=== PATIENT | male | born 1985 | race Caucasian/White ===

== ENCOUNTER 2024-06-29 17:21 | Emergency (ER) | payer OTHER, SELFPAY ==
--- NOTE | ~2024-06-29 | XR_ITS ---
EXAMINATION: XR FOOT, LEFT CLINICAL INFORMATION: Laceration of the fourth and fifth, short of abdominal wound. COMPARISON: None available. TECHNIQUE: AP, lateral, and oblique views of the left foot. FINDINGS: There is fracture through the midshaft of fifth proximal phalanx on the left, without displacement. The rest of visualized branches are unremarkable. Metatarsal bones and tarsal bones are normal. XR/XR foot LT min 3V IMPRESSION: Fracture through the midshaft of the fifth proximal phalanx
--- NOTE | 2024-06-29 17:47 | ED_ITS ---
HPI - General Adult General Chief complaint: Wound/Laceration Stated complaint: L pinky toe lac, bleeding controlled, near syncope Time Seen by Provider: 06/29/24 19:50 History of Present Illness ED Provider: Johnathan WARD narrative: The patient is a 39-year-old male. He is generally healthy aside from a seizure disorder for which he is on medications. He was taking a shower today. Shower door fell off and struck him on the left foot over the small toe. He sustained a laceration and a lot of pain and came to the emergency room. No other injuries. Last tetanus was 1 year ago. Related Data Previous Rx's ?Medication ?Instructions ?Recorded cephalexin 500 mg capsule 500 mg PO QID 7 days #28 caps 06/29/24 Allergies Allergy/AdvReac Type Severity Reaction Status Date / Time Penicillins [PENICILLINS] Allergy Unknown UNKNOWN Verified 06/30/24 15:34 Sulfa (Sulfonamide Allergy Unknown UNKNOWN Verified 06/30/24 15:34 Antibiotics) [SULFA (SULFONAMIDE ANTIBIOTICS)] Review of Systems 2 Review of Systems: Yes all other systems are reviewed and are negative Physical Exam ED Vital Signs: Vital Signs - 24 hr 06/29/24 17:48 06/29/24 21:05 Temperature 98 F 99 F Pulse Rate 72 68 Respiratory Rate 18 16 Blood Pressure 136/88 144/84 H Pulse Oximetry 100 97 Oxygen Delivery Method Room Air Room Air BMI result Body Mass Index 33.9 Const Other: The patient is a large male, BMI 33, who was awake, alert, pleasant, cooperative. HENMT Other: The appearance of the face is unremarkable. Eyes Other: Pupils are round equal, conjunctivae clear Resp Effort & Inspection: normal respiratory effort Skin Other: There is a laceration at the base of the left 5th toe. The laceration is about 1.5 cm in length. Neuro Other: The patient is awake, alert, pleasant, cooperative. Mental status is normal. The foot is neurovascularly intact. Extrem Other: There is a laceration at the base of the left 5th toe. No gross deformity. Fifth toe is quite tender. Course Course Course Narrative: This is a rapid medical exam performed by Ventura Truong NP: Additional HPI, ROS, PE not included below will be deferred to primary provider. Patient is a 39-year-old female presenting to emergency department with complaint of laceration to left foot between 4th and 5th toes. Patient was getting out of the shower when the shower door fell onto his foot. He states that his 5th toe feels ?loose. ?. Patient noted to have laceration to dorsal aspect of foot extending between 4th and 5th toes. Sensation intact. Tdap up-to-date, received last year. Plan: xray, will need sutures Medications Administered Discontinued Medications Generic Name Dose Route Start Last Admin Trade Name Araceli PRN Reason Stop Dose Admin Bacitracin 1 appl 06/29/24 21:30 06/29/24 21:35 Bacitracin Oint 0.9 Gm Packet TOPICAL 06/29/24 21:31 1 appl ONCE ONE Administration Protocol Cefazolin Sodium 3 gm/ Sodium 100 mls @ 200 mls/hr 06/29/24 21:15 06/29/24 22:55 Chloride IV 06/29/24 21:44 Infused ONCE ONE Infusion Lidocaine HCl 10 ml 06/29/24 20:57 06/29/24 21:08 Lidocaine Hcl 1 % 10 Ml Vial INFILTRATI 06/29/24 20:58 10 ml ONCE ONE Administration Procedures Laceration Laceration 1: Site: lower extremity Side (If applicable): left Size (cm): 3 Description: linear Depth: simple, single layer Local Anesthetic: lidocaine 1% Amount of anesthesia used (mL): 5 Pre-repair: wound explored, irrigated extensively and deep structures intact Skin layer closed with: nylon Size (cm): 4-0 Number of sutures: 5 Medical Decision Making Medical Decision Making [facility] Narrative: The patient is a 39-year-old male who sustained an injury to his left small toe when the shower door of the shower fell on his foot. He has a fracture of the proximal phalanx of the left small toe. There is an overlying laceration which is likely associated with the fracture and therefore this seems to be an open fracture. The patient is up-to-date on tetanus. I discussed the case with orthopedics who recommended a good washout with wound closure and follow up and antibiotics. The patient was given 2 g of IV cefazolin. After anesthesia the wound was copiously irrigated with normal saline and then closed with 5 sutures. The patient was given a postop shoe and crutches. He will be discharged with a prescription for cephalexin to follow up with Orthopedics for further care. Discharge Plan Discharge Clinical Impression: Open fracture of fifth toe of left foot Patient Disposition: Home, Self-Care Instructions: Crutch Instructions (ED), Toe Fracture (ED), Post Surgical Shoe (ED) Additional Instructions: You have a fracture of your left 5th toe. There was a wound associated with this fracture which makes this a ?open fracture. Please take the antibiotic prescribed 4 times a day, approximately every 6 hours. Please pharmacy picking tech the antibiotic tonight and take a dose at around 4:00AM, after that you may take it 4 times a day approximately every 6 hours. The prescription was sent to the 24 hour [facility] pharmacy on [address] in [place]. Use the crutches and the open toed shoe provided. Stay off the foot as much as possible and keep the left leg elevated. Elevating the injury will reduce swelling and improve healing. Please contact the orthopedic office in the morning for further care. Explained that you have an open fracture of your toe and that you should be seen in the next few days. Return to the emergency room if significantly worse at any time. Prescriptions: New cephalexin 500 mg capsule 500 mg PO QID 7 Days Qty: 28 0RF Referrals: Robert Vazquez MD [Physician] - (open fracture of left fifth toe) Stand Alone Forms: Work/School Release Interventions: ED Discharge Assessment Last Done: 06/29/24 23:29 Discharge Date/Time: 06/29/24 23:29 Print Language: Luxembourger
[2024-06-29 17:48] VITALS: BP 136/88; BP 162/90; PULSE 72; PULSE 89; RESP 18; TEMP 36.6; O2SAT 100; O2SAT 97; BMI 33.9
--- NOTE | 2024-06-29 19:19 | PC.NURSE ---
pt from waiting room, assume car of pt at this time
--- NOTE | 2024-06-29 19:40 | PC.NURSE ---
pt requesting to take his nightly meds, that he brought with him, explained, he couldn't take his medicine, at this time, pt voiced understaning
[2024-06-29 21:05] VITALS: BP 144/84; PULSE 68; RESP 16; TEMP 37.2; O2SAT 97
[2024-06-29] MEDS: Lidocaine HCl 1 % 10 ML VIAL INFILTRATI (21:08)
[2024-06-29] MEDS: Bacitracin Oint 0.9 GM PACKET 1 APPL TOPICAL (21:35)
[2024-06-29] MEDS: ceFAZolin Sodium 3 GM in 0.9 % Sodium Chloride 100 ML IV (21:53)
[2024-06-29 23:29] VITALS: BP 150/97; PULSE 70; RESP 18; TEMP 37.1; O2SAT 97
== END 2024-06-29 23:29 | disposition home or self-care (01) ==
PROVIDERS: Emergency Provider Emergency Medicine; PCP Physician Assistant
DX: S91.115A Laceration without foreign body of left lesser toe(s) without damage to nail, initial encounter (principal); M79.672 Pain in left foot; W26.9XXA Contact with unspecified sharp object(s), initial encounter; Y93.E1 Activity, personal bathing and showering; Y92.091 Bathroom in other non-institutional residence as the place of occurrence of the external cause; Y99.8 Other external cause status
CPT/HCPCS: 12002; 73630; 96374; 96375; 99284; 99285; J0690

== ENCOUNTER 2024-06-30 14:55 | Emergency (ER) | payer OTHER, SELFPAY ==
--- NOTE | 2024-06-30 15:28 | ED.GENADULT ---
HPI - General Adult General Chief complaint: Extremity Injury, Lower Stated complaint: l foot infection Time Seen by Provider: 06/30/24 17:29 Source: patient Mode of arrival: ambulatory Limitations: no limitations History of Present Illness ED Provider: Maximilian Leung PA-C HPI narrative: 39-year-old male presents to the ER for re-evaluation of an open fracture to the left 5th toe. Patient was seen here yesterday after a shower door dropped on his foot, causing a fracture and laceration to his left 5th toe. Sutures were placed and he was placed on antibiotics. He saw his PCP today who was concerned for infection with swelling of his foot. Patient reported some ongoing bleeding at the wound site but no drainage of any pus. No redness of the foot. Has a walking boot and crutches but has been bearing weight on the foot with increased pain. He has been compliant with his prescribed Keflex. MD complaint: Left foot pain and swelling after injury yesterday Onset (ago): day(s) Location: left and lower extremity Radiation: proximal Severity: moderate Severity scale (1-10): 6 Quality: aching Pain Consistency: constant Relieving factors: immobilization and rest Exacerbating factors: movement Associated symptoms: other (Slight bleeding from the wound) Treatments prior to arrival: none Related Data Previous Rx's ?Medication ?Instructions ?Recorded cephalexin 500 mg capsule 500 mg PO QID 7 days #28 caps 06/29/24 Allergies Allergy/AdvReac Type Severity Reaction Status Date / Time Penicillins [PENICILLINS] Allergy Unknown UNKNOWN Verified 06/30/24 15:34 Sulfa (Sulfonamide Allergy Unknown UNKNOWN Verified 06/30/24 15:34 Antibiotics) [SULFA (SULFONAMIDE ANTIBIOTICS)] Review of Systems Review of Systems: Yes all other systems are reviewed and are negative [facility] Social History Social History (System 12/12/23 @ 13:28 by Cass Choe) Advance Directives: No Advance Directives Information Provided: No Do you have a plan to hurt others: No Plan Physical Exam ED Vital Signs: Vital Signs - 24 hr 06/30/24 15:29 06/30/24 18:05 06/30/24 18:18 Temperature 98.3 F 98.3 F 98.3 F Pulse Rate 92 84 84 Respiratory Rate 18 16 16 Blood Pressure 149/92 H 150/92 H 150/92 H Pulse Oximetry 96 95 95 Oxygen Delivery Method Room Air Room Air Room Air BMI result Body Mass Index 41.1 Appearance: Alert. Oriented X3. No acute distress. HEENT: normal inspection CVS: Normal heart rate and rhythm. Pulses normal. Respiratory: No respiratory distress. Skin: Skin warm and dry. Normal skin color. Normal skin turgor. No rashes. Extremities: Left foot with moderate generalized swelling of the top of the foot, mild tenderness of the metatarsals. There is a linear laceration between the 4th and 5th digits with sutures in place, mild oozing distally without any wound dehiscence. The wound margins have white, wet, macerated skin. There is no erythema or warmth of the area. Neuro: Oriented X 3. No motor deficit. No sensory deficit. Course Course Course Narrative: RME performed by Hmoa Grya PA-C. Patient is a 39 year old assigned male at presenting to the emergency department with a left 5th toe laceration and fracture. Patient states that he was seen here yesterday for a left 5th toe fracture and laceration that was repaired. Patient states that he saw his PCP this morning who told him his toe looked infected and needed to be seen here in the ER where he was originally seen. Patient states he has been taking his medication as prescribed. Detailed physical exam and review of systems are deferred to the industry consultant. Patient placed back in the waiting room pending room availability. Medical Decision Making Medical Decision Making MDM Narrative: 39-year-old morbidly obese male with a recent left open toe fracture that occurred yesterday here from the PCP office for evaluation of possible infection of the area. Patient was placed on prophylactic Keflex. On examination there does not appear to be any infection, there is localized swelling of the foot and toe with some macerated skin at the wound edges. Patient was counseled on appropriate wound care and need to dry out the wound. The wound edges are well approximated. He continues to try to bear weight on the foot which is not allowing the wound epithelialized and properly heal. We discussed proper use of crutches and limiting weight-bearing while the wound and fracture are healing. Wound was redressed and patient was sent home with wound care supplies. We discussed signs and symptoms of infection that would prompt re-evaluation. Patient expressed understanding and is stable for discharge home. Differential Diagnosis Differential Diagnoses: The differential diagnosis associated with the presentation includes Open toe fracture, cellulitis, localized inflammatory response due to trauma, wound dehiscence External Record Review External record reviewed: Prior outpatient radiology Tests considered The following testing was considered but not selected: Considered repeat x-ray of the foot however management would not change, there does not appear to be gross deformity or displacement of the toe Prescription Management I considered prescription management with: Pain Medication and Antibiotic Chronic Conditions Patient?s care impacted by: Other (Morbid obesity) Critical Care Time Critical Care Time Critical Care Time: No Discharge Plan Discharge Clinical Impression: Open fracture of toe Patient Disposition: Home, Self-Care Instructions: Toe Fracture (ED) Additional Instructions: Continue your previously prescribed antibiotics. Complete the entire course and do not miss any doses. Keep the wound dry and clean. Change the dressing at least once per day. Do your best to not put any weight on this foot to allow the wound to heal appropriately. Elevate your foot whenever possible, apply ice to help with the pain and swelling. If you develop worsening swelling, redness to the foot or wound, drainage of pus or any other signs or symptoms of infection call your doctor come back to the ER for further evaluation and treatment. Prescriptions: No Action cephalexin 500 mg capsule 500 mg PO QID 7 Days Qty: 28 0RF Referrals: Naseem Bashir PA [Primary Care Provider] - Interventions: ED Discharge Assessment Last Done: 06/30/24 18:18 Discharge Date/Time: 06/30/24 18:18 Print Language: Danish
[2024-06-30 15:29] VITALS: BP 149/92; PULSE 92; RESP 18; TEMP 36.8; O2SAT 96; BMI 41.1
--- OUTSIDE RECORDS SUMMARY | 2024-06-30 17:37 | XMS_ITS | Continuity of Care Document ---
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) - 01/01/23 Severe obesity (BMI 35.0-39.9) with comorbidity(Discharge Diagnosis) - 01/01/23 ESSIE (obstructive sleep apnea)(Discharge Diagnosis) - 01/01/23 Attending Physician: Naseem Page Allergies, Adverse Reactions, Alerts Substance Reaction Severity Status penicillin face turns green Active sulfa drugs unknown Active Immunizations Given and Recorded Vaccine Date Status Refusal Reason influenza virus vaccine, inactivated 09/19/22 Remberto rded influenza virus vaccine, inactivated 08/17/21 Remberto rded influenza virus vaccine, inactivated 08/21/20 Remberto rded influenza virus vaccine, inactivated 08/23/19 Remberto rded influenza virus vaccine, inactivated 09/02/18 Remberto rded influenza virus vaccine, inactivated 09/15/17 Remberto rded influenza virus vaccine, inactivated 09/16/15 Give n influenza virus vaccine, inactivated 08/09/09 Remberto rded SARS-CoV-2 (COVID-19) mRNA-1273 vaccine 10/18/21 R ecorded SARS-CoV-2 (COVID-19) mRNA-1273 vaccine 04/08/21 R ecorded SARS-CoV-2 (COVID-19) mRNA-1273 vaccine 03/11/21 R ecorded tetanus/diphtheria/pertussis, acel(Tdap) 05/29/17 Given tetanus-diphtheria toxoids (Td) 05/12/08 Recorded tetanus-diphtheria toxoids (Td) 05/13/07 Given Medications Carpal tunnel splint right Carpal tunnel splint right, See Instructions, # 1 Unknown, Refills 0, Tot. Refills 0, Maintenance, Wear splint every night x 3 months. Dx CTS, 02/17/22 15:50:00 EDT, Supply Start Date: 02/17/22 Status: Ordered escitalopram 10 mg oral tablet 1 tablet, By Mouth, Daily, # 90 tablet, 1 Refills, Maintenance, 12/21/22 14:57:00 EST, [id number], 177.6, cm, 10/27/22 16:09:00 EST, Height Start Date: 12/21/22 Status: Ordered fluticasone 50 mcg/inh nasal spray See Instructions, USE 1 SPRAY BOTH NOSTRILS 2 TIMES A DAY,X90 DAYS, # 48 mL, 1 Refills, Maintenance, 07/19/22 12:07:00 EDT, [id number], 90, USE 1 SPRAY BOTH NOSTRILS 2 TIMES A DAY,X90 DAYS, 177.6, cm, 02/17/22 15:34:00 EDT, Height Start Date: 07/19/22 Status: Ordered Keppra XR 500 mg oral tablet, extended release 3 tablet, By Mouth, Daily in PM, DIRECTED., # 270 tablet, 3 Refills, Maintenance, 01/04/22 15:34:00 EST, [facility]/pharmacy #[id number], 177.6, cm, 12/22/21 16:30:00 EST, Height Start Date: 01/04/22 Stop Date: 12/30/22 Status: Ordered lisinopril 5 mg oral tablet 1, tablet, By Mouth, Daily, # 90 tablet, Refills 4, Route to Pharmacy Electronically, [id number], 177.6, cm, 02/17/22 15:34:00 EDT, Height Start Date: 03/22/22 Status: Ordered Proctozone HC 2.5% topical cream 1 applicator, Topically, 3 times a day, apply in a thin film to the affected skin and rub in gentlyand completely, # 30 Gm, 0 Refills, Maintenance, 09/01/20 11:10:00 EDT, [id number], 1 applicator Topically 3 times a day,x14 days,Instr:apply i... Start Date: 09/01/20 Stop Date: 09/15/20 Status: Ordered Readi-Cat 2 oral suspension See Instructions, 2 bottles as per radiology 1 the evening before CAT scan with the morning of CAT scan, # 2 pack/packet, 0 Refills, Maintenance, 11/30/20 14:17:00 EST, [id number], Partial fill upon patient request if the prescription is for a... Start Date: 11/30/20 Status: Ordered Problem List Condition Confirmation Course Effective Dates Status Health St atus Informant Adjustment Disorder with Mixed Anxiety and Depressed Mood Confirmed Active Autism spectrum disorder Confirmed Active Gynecomastia, male Confirmed Active Hypertension Confirmed Active Intractable localization-relate d epilepsy Confirmed Active Obesity Confirmed Active Class 2 obesity with body mass index (BMI) of 38.0 to 38.9 in adult Confirmed Active ESSIE (obstructive sleep apnea) Confirmed Active *[facility] [phone] PIECE DYER JAMARI BOWER Confirmed Active Severe obesity (BMI 35.0-39.9) with comorbidity Confirmed Active Right shoulder pain Confirmed Active Diagnosis Diagnosis Type Effective Dates Health Status Clinical Service Informant Physical exam Discharge Diagnosis 01/01/23 Hypertension Discharge Diagnosis 01/01/23 Intractable localization-relate d epilepsy Discharge Diagnosis 01/01/23 Severe obesity (BMI 35.0-39.9) with comorbidity Discharge Diagnosis 01/01/23 ESSIE (obstructive sleep apnea) Discharge Diagnosis 01/01/23 Vital Signs Most recent to oldest [Reference Range]: 1 2 Height 177.6 cm (01/01/23 9:26 AM) 177.6 cm (01/01/23 9:05 AM) Weight 122.8 kg (01/01/23 9:05 AM) Oxygen Saturation [94-100 %] 95 % (01/01/23 9:05 AM) Pulse Rate [55-90 bpm] 74 bpm (01/01/23 9:05 AM) Body Mass Index [18.5-24.99 kg/m2] 38.93 kg/m2 *>HHI* (01/01/23 9:05 AM) Blood Pressure [90-138/55-84 mm Hg] 124/ 83mm Hg (01/01/23 9:26 AM) 140/86mm Hg *H* (01/01/23 9:05 AM) Mode of Delivery (Oxygen) Room air (01/01/23 9:05 AM) Blood pressure sites Arm, left (01/01/23 9:05 AM) Social History Social History Type Response Smoking Status Never smoker entered on: 03/10/14 Sex Note * Char Valenzuela MA: PERFORM, SIGN, VERIFY Event Display: Patient Education/Instruction Authored Date: [id number] [facility] *MEERA Aleman Clinical Summary Name CARSON LANDRY Age 37 Years 1985 PCP Mckay JENSEN, Naseem Lr PCP Visit Date 01/01/2023 08:58:00 Additional Instructions: Scheduled Appointments?? Future Appointments ?No Future Appointments Scheduled Follow-Up Instructions ?? Diagnosis Essential (primary) hypertension; Localization-related (focal) (partial) symptomatic epilepsy and epileptic syndromes with simple partial seizures, intractable, without status epilepticus; Obstructive sleep apnea (adult) (pediatric); Morbid (severe) obesity due to excess calories; Encounter for gene ral adult medical examination without abnormal findings Medications: Please continue your medications until treatment is completed or stopped by your provider. Discuss any questions related to medications with your provider. Medications to Continue with No Changes These medications were not printed or sent to your pharmacy Barium Sulfate (Readi-Cat 2 oral suspension) 2 bottles as per radiology 1 the evening before CAT scan with the morning of CAT scan. Refills: 0. Next Dose: Durable Medical Equipment (Carpal tunnel splint right) Wear splint every night x 3 months. Dx CTS. Refills: 0. Next Dose: Escitalopram (escitalopram 10 mg oral tablet) 1 tab(s) Oral Daily. Refills: 1. Next Dose: Fluticasone Nasal (fluticasone 50 mcg/inh nasal spray) USE 1 SPRAY BOTH NOSTRILS 2 TIMES A DAY,X90 DAYS. Refills: 1. Next Dose: Hydrocortisone Topical (Proctozone HC 2.5% topical cream) 1 applicator Topically 3 times a day for 14 Days. apply in a thin film to the affected skin and rub in gently and completely. Refills: 0. Next Dose: levETIRAcetam (Keppra XR 500 mg oral tablet, extended release) 3 tab(s) Oral Daily in PM for 90 Days. DIRECTED.. Refills: 3. Next Dose: Lisinopril (lisinopril 5 mg oral tablet) 1 tab(s) Oral Daily. Refills: 4. Next Dose: Allergy Info:?? sulfa drugs; penicillin Medications Given This Visit Future Orders ?Comprehensive Metabolic Panel? Order Date:01/01/23?- Complete on or after?01/01/23 ?Hemoglobin A1C (Monitoring)? Order Date:01/01/23?- Complete on or after?01/01/23 Vital Signs Height 177.6 cm Weight 122.8 kg BMI 38.93 kg/m2 Blood Pressure 124 mm Hg/83 mm Hg Temperature Pulse Rate 74 bpm Respiratory Rate 02 Sat Mode of Delivery 95 %/Room air You can now view a summary of your hospital visit from the comfort of your home through a free online portal called [employer]. [employer] is a website that allows you to securely view your medical information including discharge summary, medications and follow-up visits. ??You can alsosend a secure electronic message to your doctor???s office to request appointments, renew medications or just ask a question. You can enroll at [email or web address] or register during your next office visit. Disclaimer:?? The information provided is of a general nature and is intended to be used in conjunction with the recommendations and advice of your health care practitioner. ??Every effort has been made to ensure that the information provided is accurate and complete at the time it is provided to you however, as your needs change, or, as new ??information becomes available, different or additional instructions may be required. If you have questions, please consult with your primary care provider or pharmacist, as appropriate. ??This information is not intended to serve as substitution for assessment and evaluation by a qualified health care provider. If you do not have a primary care provider, you may find a [facility] provider by calling [facility] [employer] [facility] at [phone]. For information about the plan of care including goals and instructions for your diagnosis, please see the patient education orders section of this document. Patient Education Materials?? The content of this educational material or handout may have been modified, supplemented, or adapted from its original content and format to support your individualized medical care. Patient Care team information Care Team Personnel Name: Naseem Page [facility] Associate Professional Member Role: PCP Address: Address: [address] [place] [address]- Care Team Related Persons Name: YOU BRITTON Address: [address] [place] [id number] Name: MORTEZA LANDRY Address: home [address] [place] [address]
--- OUTSIDE RECORDS SUMMARY | 2024-06-30 17:37 | XMS_ITS | Continuity of Care Document ---
Author Organization [facility] Address [address] [facility], 3r d Floor, [address] [place] [id number]- Care Team Providers Care Chief Of Field Operations Name Role Phone Josue JAMESON, Elyse Daniel Primary Care Physician Encounter [facility] [place] Date(s): 01/14/20 - 05/13/20 [facility] [address], 3[address] Floor, [address] [place] [address]- [facility] Attending Physician: Geovanny Randhawa Admitting Physician: Geovanny Randhawa Allergies, Adverse Reactions, Alerts Substance Reaction Severity Status penicillin face turns green Active sulfa drugs unknown Active Immunizations Given and Recorded Vaccine Date Status Refusal Reason tetanus/diphtheria/pertussis, acel(Tdap) 05/29/17 Given influenza virus vaccine, inactivated 09/16/15 Give n tetanus-diphtheria toxoids (Td) 05/13/07 Given Medications Claritin 10 mg oral tablet 10 mg, 1, tablet, By Mouth, Daily, # 30 tablet, Refills 0, Maintenance, 05/29/17 10:53:48 Start Date: 05/29/17 Status: Ordered Keppra XR 500 mg oral tablet, extended release See Instructions, 3 tablet By Mouth in the AM, OR as directed. No Substitution. Brand Name Medically Necessary., # 270 tablet, 1 Refills, Maintenance, 04/13/20 11:37:00 EDT, ER Tablet, 3 month supply, Dry Weight Start Date: 04/13/20 Status: Ordered oxybutynin 10 mg/24 hr oral tablet, extended release = 10 mg, By Mouth, Daily, 0 Refills, Maintenance, 09/05/19 9:47:21 EDT, ER Tablet Start Date: 09/05/19 Status: Ordered Problem List Condition Effective Dates Status Health Status Inform ant Adjustment Disorder with Mix ed Anxiety and Depressed Mood(Confirmed) Active Autism spectrum disorder(Confirmed) Active Gynecomastia, male(Confirmed) Active Hypertension(Confirmed) Active Intractable localization-rel ated epilepsy(Confirmed) Active Obesity(Confirmed) Active ESSIE (obstructive sleep apnea)(Confirmed) Active *[facility] [phone] CARE MANAG ER JAMARI BOWER(Confirmed) Active Right shoulder pain(Confirmed) Active Social History Social History Type Response Smoking Status Never smoker entered on: 03/10/14 Sex
--- OUTSIDE RECORDS SUMMARY | 2024-06-30 17:37 | XMS_ITS | Continuity of Care Document ---
Author Organization [facility] Address [address] [place] [address]- Care Team Providers Care Popcorn Vendor Name Role Phone Naseem Page Primary Care Physician Encounter 04/28/24 - 05/05/24 [facility] [address], [address] [place] [address]- Attending Physician: Cynthia Jules Admitting Physician: Cynthia Jules Referring Physician: Cynthia Jules Allergies, Adverse Reactions, Alerts Substance Reaction Severity Status penicillin face turns green Active sulfa drugs unknown Active Immunizations Given and Recorded Vaccine Date Status Refusal Reason influenza virus vaccine, inactivated 08/31/23 Remberto rded influenza virus vaccine, inactivated 09/19/22 Remberto rded [...] Daily, # 90 tablet, 1 Refills, Maintenance, 01/30/24 7:03:00 EDT, [id number], 177.6, cm, 01/07/24 15:36:00 EST, Height Start Date: 01/30/24 Status: Ordered fluticasone 50 mcg/inh nasal spray See Instructions, USE 1 SPRAY BOTH NOSTRILS 2 TIMES A DAY,X90 DAYS, # 48 mL, 1 Refills, Maintenance, 01/17/23 19:21:00 EST, [id number], 90, USE 1 SPRAY BOTH NOSTRILS 2 TIMES A DAY,X90 DAYS, 177.6, cm, 01/01/23 9:26:00 EST, Height Start Date: 01/17/23 Status: Ordered Keppra 750 mg oral tablet 1 tablet = 750 mg, By Mouth, 2 times a day, Brand name medically necessary, # 180 tablet, 2 Refills, Maintenance, 04/16/24 11:16:00 EDT, Tablet, [id number], Partial fill upon patient request if the prescription is for a schedule II opioid ector... Start Date: 04/16/24 Stop Date: 01/11/25 Status: Ordered Problem List Condition Confirmation Course Effective Dates Status [facility] atus Informant Adjustment Disorder with Mixed Anxiety and Depressed Mood Confirmed Active Autism spectrum disorder Confirmed Active Gynecomastia, male Confirmed Active Hypertension Confirmed Active Intractable localization-relate d epilepsy Confirmed Active Obesity Confirmed Active Class 2 obesity with body mass index (BMI) of 38.0 to 38.9 in adult Confirmed Active ESSIE (obstructive sleep apnea) Confirmed Active *[facility] [phone] 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 Reason: Calculus of kidney. COMPARISON: Multiple prior renal ultrasounds, most recently dated 10/30/2023; CT Abdomen and Pelvis12/28/2020. FINDINGS: Right kidney: 12.1 cm in length. No hydronephrosis. Normal parenchymal thickness and echotexture. No stones. No suspicious mass. Left kidney: 11.7 cm in length. No hydronephrosis. Normal parenchymal thickness and echotexture. Echogenic focus in the lower pole measuring up to 0.4 cm is again demonstrated. No suspicious mass. Urinary bladder: Incompletely distended, but no evidence of stone, mass or debris. Prevoid volume of approximately 89 cc. Bilateral ureteral jets are identified on color Doppler imaging suggesting ureterovesicular junction patency. Prostate: 2.9 x 3.3 x 5.3 cm, volume 26.7 cc. IMPRESSION: Unchanged echogenic focus in the lower pole of left kidney may represent a nonobstructing calculus. No sonographically apparent right renal calculi. No hydronephrosis. WSN: [id number] Ordering Physician: Cynthia Carnes Dictated By: Phu Bocanegra MD Dictated Date/Time: 04/29/24 12:48 p Reviewed By: Phu Bocanegra MD Signed By: Phu Bocanegra MD Signed Date/Time: 04/29/24 12:48 pm Transcribed By: COLTON Transcribed Date/Time: 04/29/24 12:04 pm Social History Social History Type Response Smoking Status Never smoker entered on: 03/10/14 Sex Patient Care team information Care Team Personnel Name: Naseem Page Position: S PCO Associate Professional Member Role: PCP Address: Address: [address] [place] [address]- Care Team Related Persons Name: BRITTON ORTA Address: home [address] [address] Name: KOMAL LANDRY Name: MORTEZA LANDRY Address: home [address] [place] [address]
--- OUTSIDE RECORDS SUMMARY | 2024-06-30 17:37 | XMS_ITS | Continuity of Care Document ---
Author Organization [facility] Address [address] [id number]- Care Team Providers Care Rn Rehabilitation Name Role Phone Elyse Salas NP Primary Care Physician Encounter [facility] Date(s): 12/25/19 - 01/04/20 [facility] Care [address] [address]- [facility] Attending Physician: Jose Kirk Admitting Physician: Jose Kirk Referring Physician: AdmtrJose Allergies, Adverse Reactions, Alerts Substance Reaction Severity [...] mg oral tablet, extended release See Instructions, 4 tablet By Mouth in the AM, OR as directed. No Substitution. Brand Name Medically Necessary., # 360 tablet, 1 Refills, Maintenance, 10/24/19 14:33:14 EST, ER Tablet, 3 month supply, Dry Weight Start Date: 10/24/19 Status: Ordered oxybutynin 10 mg/24 hr oral [...] Obesity(Confirmed) Active ESSIE (obstructive sleep apnea)(Confirmed) Active *[facility] [phone] CARE MANAG ER JAMARI BOWER(Confirmed) Active Right shoulder pain(Confirmed) Active Social History Social History Type Response Smoking Status Never smoker entered on: 03/10/14 Sex
--- OUTSIDE RECORDS SUMMARY | 2024-06-30 17:37 | XMS_ITS | Continuity of Care Document ---
Author Organization [facility] Address Unknown Care Team Providers Care Deli Worker Name Role Phone Naseem Page Primary Care Physician Encounter [facility] [place] Date(s): 01/04/22 - 02/03/22 [facility] Attending Physician: trJose Allergies, Adverse Reactions, Alerts Substance Reaction Severity Status penicillin face turns green Active sulfa drugs unknown Active Immunizations Given and Recorded Vaccine Date Status Refusal Reason SARS-CoV-2 (COVID-19) mRNA-1273 vaccine 10/18/21 R ecorded SARS-CoV-2 (COVID-19) mRNA-1273 vaccine 04/08/21 R ecorded SARS-CoV-2 (COVID-19) mRNA-1273 vaccine 03/11/21 R ecorded influenza virus vaccine, inactivated 08/17/21 Remberto rded influenza virus vaccine, inactivated 08/21/20 Remberto rded influenza virus vaccine, inactivated 08/23/19 Remebrto rded influenza virus vaccine, inactivated 09/02/18 Remberto rded influenza virus vaccine, inactivated 09/15/17 Remberto rded influenza virus vaccine, inactivated 09/16/15 Give n influenza virus vaccine, inactivated 08/09/09 Remberto rded tetanus/diphtheria/pertussis, acel(Tdap) 05/29/17 Given tetanus-diphtheria toxoids (Td) 05/12/08 Recorded tetanus-diphtheria toxoids (Td) 05/13/07 Given Medications fluticasone 50 mcg/inh nasal spray See Instructions, USE 1 SPRAY BOTH NOSTRILS 2 TIMES A DAY,X90 DAYS, # 16 mL, 5 Refills, [facility], USE 1 SPRAY BOTH NOSTRILS 2 TIMES A DAY,X90 DAYS, 177.6, cm, 12/22/21 16:30:00 EST, Height Start Date: 01/21/22 Status: Ordered Keppra XR 500 mg oral tablet, extended release 3 tablet, By Mouth, Daily in PM, DIRECTED., # 270 tablet, 3 Refills, Maintenance, 01/04/22 15:34:00 EST, [id number], 177.6, cm, 12/22/21 16:30:00 EST, Height Start Date: 01/04/22 Stop Date: 12/30/22 Status: Ordered Lexapro 10 mg oral tablet 1 tablet = 10 mg, By Mouth, Daily, # 90 tablet, 1 Refills, Maintenance, 12/26/21 11:20:00 EST, Tablet, [id number], Partial fill upon patient request if the prescription is for a schedule II opioid drug., 177.6, cm, 12/22/21 16:30:00 EST, Height Start Date: 12/26/21 Stop Date: 06/24/22 Status: Ordered lisinopril 5 mg oral tablet 5 mg, 1, tablet, By Mouth, Daily, # 90 tablet, Refills 4, Tot. Refills 4, Maintenance, 01/12/21 13:41:00 EST, Route to Pharmacy Electronically, [id number], Partial fill upon patient request if the prescription is for a schedule II opioid drug.... Start Date: 01/12/21 Status: Ordered Proctozone HC 2.5% topical cream [...] Date: 11/30/20 Status: Ordered Problem List Condition Effective Dates Status Health Status Inform ant Adjustment Disorder with Mix ed Anxiety and Depressed Mood(Confirmed) Active Autism spectrum disorder(Confirmed) Active Gynecomastia, male(Confirmed) Active Hypertension(Confirmed) Active Intractable localization-rel ated epilepsy(Confirmed) Active Obese class II(Confirmed) Active Obesity(Confirmed) Active Class 2 obesity with body ma ss index (BMI) of 38.0 to 38.9 in adult(Confirmed) Active ESSIE (obstructive sleep apnea)(Confirmed) Active *[facility] [phone] CARE MANAG CURRY BOWER(Confirmed) Active Right shoulder pain(Confirmed) Active Social History Social History Type Response Smoking Status Never smoker entered on: 03/10/14 Sex
--- OUTSIDE RECORDS SUMMARY | 2024-06-30 17:37 | XMS_ITS | Continuity of Care Document ---
Author Organization [facility] Address [address] [facility], 3r d Floor, [address] [place] [address]- Care Team Providers Care Applications Programmer Analyst Name Role Phone Elyse Salas NP Primary Care Physician Encounter [facility] [place] Date(s): 01/23/20 - 01/30/20 [facility] [address], [address] Floor, [address] [place] [address]- [facility] Attending Physician: Geovanny Randhawa Allergies, Adverse Reactions, Alerts [...] Obesity(Confirmed) Active ESSIE (obstructive sleep apnea)(Confirmed) Active *[facility] [phone] CARE MANAG CURRY BOWER(Confirmed) Active Right shoulder pain(Confirmed) Active Social History Social History Type Response Smoking Status Never smoker entered on: 03/10/14 Sex
--- OUTSIDE RECORDS SUMMARY | 2024-06-30 17:37 | XMS_ITS | Continuity of Care Document ---
Author Organization [facility] Address [address] [place] [address]- Care Team Providers Care Manager Project Name Role Phone Not on Staff, PCP Primary Care Physician Unavail able Encounter [facility] [place] Date(s): 12/08/20 - 01/07/21 [facility] [address] [place] [address]- Allergies, Adverse Reactions, Alerts Substance Reaction Severity Status penicillin face turns green Active sulfa drugs unknown Active Immunizations Given and Recorded Vaccine Date Status Refusal Reason tetanus/diphtheria/pertussis, acel(Tdap) 05/29/17 Given influenza virus vaccine, inactivated 09/16/15 Give n tetanus-diphtheria toxoids (Td) 05/13/07 Given Medications Keppra XR 500 mg oral tablet, extended release See Instructions, 3 tablet By Mouth in the AM, OR as directed. No Substitution. Brand Name Medically Necessary., # 270 tablet, 1 Refills, Maintenance, 10/04/20 14:07:00 EST, ER Tablet, 3 month supply Start Date: 10/04/20 Status: Ordered Proctozone HC 2.5% topical cream [...] Intractable localization-rel ated epilepsy(Confirmed) Active Obesity(Confirmed) Active Class 2 obesity with body ma ss index (BMI) of 38.0 to 38.9 in adult(Confirmed) Active ESSIE (obstructive sleep apnea)(Confirmed) Active *[facility] [phone] CARE MANAG ER JAMARI BOWER(Confirmed) Active Right shoulder pain(Confirmed) Active Social History Social History Type Response Smoking Status Never smoker entered on: 03/10/14 Sex
--- OUTSIDE RECORDS SUMMARY | 2024-06-30 17:37 | XMS_ITS | Continuity of Care Document ---
Author Organization [facility] Address [address] [place] [address]- Care Team Providers Care Load Blocker Name Role Phone Naseem Page Primary Care Physician Encounter [facility] Date(s): 10/27/22 - 11/03/22 [facility] [address] [place] [address]- Encounter Diagnosis Hypertension(Discharge Diagnosis) - 10/27/22 Intractable localization-related epilepsy(Discharge Diagnosis) - 10/27/22 Attending Physician: Naseem Page Allergies, Adverse Reactions, [...] EDT, Supply Start Date: 02/17/22 Status: Ordered fluticasone 50 mcg/inh nasal spray See Instructions, USE 1 SPRAY BOTH NOSTRILS 2 TIMES A DAY,X90 DAYS, # 48 mL, 1 Refills, Maintenance, 07/19/22 12:07:00 EDT, [id number], 90, USE 1 SPRAY BOTH NOSTRILS 2 [...] Daily, # 90 tablet, 1 Refills, Maintenance, 06/29/22 15:30:00 EDT, Tablet, [facility] #[id number], Partial fill upon patient request if the prescription is for a schedule II opioid drug., 177.6, cm, 02/17/22 15:34:00 EDT, Height Start Date: 06/29/22 Stop Date: 12/26/22 Status: Ordered lisinopril 5 mg oral tablet 1, tablet, By Mouth, Daily, # 90 tablet, Refills 4, Route to Pharmacy Electronically, [id number], 177.6, cm, 02/17/22 15:34:00 EDT, Height Start Date: 03/22/22 Status: Ordered Proctozone HC 2.5% topical cream 1 applicator, Topically, 3 times a day, apply in a thin film to the affected skin and rub in gentlyand completely, # 30 Gm, 0 Refills, Maintenance, 09/01/20 11:10:00 EDT, [facility]/pharmacy #[id number], 1 applicator Topically 3 times a day,x14 days,Instr:apply i... Start Date: 09/01/20 Stop Date: 09/15/20 Status: Ordered Readi-Cat 2 oral suspension See Instructions, 2 bottles as per radiology 1 the evening before CAT scan with the morning of CAT scan, # 2 pack/packet, 0 Refills, Maintenance, 11/30/20 14:17:00 EST, [facility]/pharm[facility] #[id number], Partial fill upon patient request if the prescription is for a... Start Date: 11/30/20 Status: Ordered Problem List Condition Confirmation Course Effective Dates Status Health St atus Informant Adjustment Disorder with Mixed Anxiety and Depressed Mood Confirmed Active Autism spectrum disorder Confirmed Active Gynecomastia, male Confirmed Active Hypertension Confirmed Active Intractable localization-relate d epilepsy Confirmed Active Obese class II Confirmed Active Obesity Confirmed Active Class 2 obesity with body mass index (BMI) of 38.0 to 38.9 in adult Confirmed Active ESSIE (obstructive sleep apnea) Confirmed Active *[facility] [phone] [employer] PROFESSOR JAMARI BOWER Confirmed Active Right shoulder pain Confirmed Active Diagnosis Diagnosis Type Effective Dates Health Status Clinical Service Informant Hypertension Discharge Diagnosis 10/27/22 Intractable localization-relate d epilepsy Discharge Diagnosis 10/27/22 Vital Signs Most recent to oldest [Reference Range]: 1 Height 177.6 cm (10/27/22 4:09 PM) Weight 124.3 kg (10/27/22 4:09 PM) Oxygen Saturation [94-100 %] 98 % (10/27/22 4:09 PM) Pulse Rate [55-90 bpm] 88 bpm (10/27/22 4:09 PM) Body Mass Index [18.5-24.99 kg/m2] 39.41 kg/m2 *>HHI* (10/27/22 4:09 PM) Blood Pressure [90-138/55-84 mm Hg] 128/ 84mm Hg (10/27/22 4:09 PM) Mode of Delivery (Oxygen) Room air (10/27/22 4:09 PM) Blood pressure sites Arm, left (10/27/22 4:09 PM) Social History Social History Type Response Smoking Status Never smoker entered on: 03/10/14 Sex Patient Care team information Care Team Personnel Name: Naseem Page Position: [facility] PCO Associate Professional Member Role: PCP Address: Address: [address] [place] [address]- Care Team Related Persons Name: BRITTON ORTA Address: [address] [address] Name: MORTEZA LANDRY Address: home [address] [place] [address]
--- OUTSIDE RECORDS SUMMARY | 2024-06-30 17:37 | XMS_ITS | Continuity of Care Document ---
Author Organization [facility] Address [address] [place] [address] ve [address] [place] [address]- Care Team Providers Care Ground Helper Street Railway Name Role Phone Josue JAMESON, Elyse Daniel Primary Care Physician Encounter [facility] [place] [place] Date(s): 09/01/20 - 09/08/[address] [place] [address]- [place] Encounter Diagnosis Hematochezia(Discharge Diagnosis) - 09/01/20 Attending Physician: Hernán ROJAS, Rosaura Lima Referring Physician: Elyse Salas NP Allergies, Adverse Reactions, Alerts Substance Reaction Severity [...] Dry Weight Start Date: 04/13/20 Status: Ordered Proctozone HC 2.5% topical cream 1 applicator, Topically, 3 times a day, apply in a thin film to the affected skin and rub in gentlyand completely, # 30 Gm, 0 Refills, Maintenance, 09/01/20 11:10:00 EDT, [id number], 1 applicator Topically 3 times a day,x14 days,Instr:apply i... Start Date: 09/01/20 Stop Date: 09/15/20 Status: Ordered Problem List Condition Effective Dates Status Health Status Inform ant Adjustment Disorder with Mix ed Anxiety and Depressed Mood(Confirmed) Active Autism spectrum disorder(Confirmed) Active Gynecomastia, male(Confirmed) Active Hypertension(Confirmed) Active Intractable localization-rel ated epilepsy(Confirmed) Active Obesity(Confirmed) Active Class 2 obesity with body ma ss index (BMI) of 38.0 to 38.9 in adult(Confirmed) Active ESSIE (obstructive sleep apnea)(Confirmed) Active *[facility] [phone] CARE MANAG ER JAMARI SATHISH(Confirmed) Active Right shoulder pain(Confirmed) Active Diagnosis Diagnosis Type Effective Dates Health Status Cl inical Service Informant Hematochezia Discharge Diagnosis 09/01/20 Vital Signs Most recent to oldest [Reference Range]: 1 Height 176 cm (09/01/20 10:57 AM) Weight 121.7 kg (09/01/20 10:57 AM) Pulse Rate [55-90 bpm] 75 bpm (09/01/20 10:57 AM) Body Mass Index [18.5-24.99] 39.29 *>HHI* (09/01/20 10:57 AM) Blood Pressure [90-138/55-84 mm Hg] 149/ 100mm Hg *H* (09/01/20 10:57 AM) Temperature [96.8-100.4 DegF] 97 DegF (09/01/20 10:57 AM) Blood pressure sites Arm, left (09/01/20 10:57 AM) Temperature Route Temporal (09/01/20 10:57 AM) Weight Obtained Via Standing scale (09/01/20 10:57 AM) Social History Social History Type Response Smoking Status Never smoker entered on: 03/10/14 Sex
--- OUTSIDE RECORDS SUMMARY | 2024-06-30 17:37 | XMS_ITS | Continuity of Care Document ---
Author Organization [facility] Address Unknown Care Team Providers Care Laundry Worker Name Role Phone Naseem Page Primary Care Physician Encounter [facility] [place] [place] Date(s): 02/17/22 - 02/24/22 [facility] Encounter Diagnosis CTS (carpal tunnel syndrome)(Discharge Diagnosis) - 02/17/22 Attending Physician: Naseem Page Allergies, Adverse Reactions, [...] DAY,X90 DAYS, # 16 mL, 5 Refills, [id number], 30, USE 1 SPRAY BOTH NOSTRILS 2 TIMES A DAY,X90 DAYS, 177.6, cm, 12/22/21 16:30:00 EST, Height Start Date: 01/21/22 Status: Ordered Keppra XR 500 mg oral tablet, extended release 3 tablet, By Mouth, Daily in PM, DIRECTED., # 270 tablet, 3 Refills, Maintenance, 01/04/22 15:34:00 EST, [facility]/pharmacy #[id number], 177.6, cm, 12/22/21 16:30:00 EST, Height Start Date: 01/04/22 Stop Date: 12/30/22 Status: Ordered Lexapro 10 mg oral tablet 1 tablet = 10 mg, By Mouth, Daily, # 90 tablet, 1 Refills, Maintenance, 12/26/21 11:20:00 EST, Tablet, [facility]/pharmacy #[id number], Partial fill upon patient request if the prescription is for a schedule II opioid drug., 177.6, cm, 12/22/21 16:30:00 EST, Height Start Date: 12/26/21 Stop Date: 06/24/22 Status: Ordered lisinopril 5 mg oral tablet 5 mg, 1, tablet, By Mouth, Daily, # 90 tablet, Refills 4, Tot. Refills 4, Maintenance, 01/12/21 13:41:00 EST, Route to Pharmacy Electronically, [facility]/pharmacy #[id number], Partial fill upon patient request if the prescription is for a schedule II opioid drug.... Start Date: 01/12/21 Status: Ordered Proctozone HC 2.5% topical cream 1 applicator, Topically, 3 times a day, apply in a thin film to the affected skin and rub in gentlyand completely, # 30 Gm, 0 Refills, Maintenance, 09/01/20 11:10:00 EDT, [facility]/pharmacy #[id number], 1 applicator Topically 3 times a day,x14 days,Instr:apply i... Start Date: 09/01/20 Stop Date: 09/15/20 Status: Ordered Readi-Cat 2 oral suspension See Instructions, 2 bottles as per radiology 1 the evening before CAT scan with the morning of CAT scan, # 2 pack/packet, 0 Refills, Maintenance, 11/30/20 14:17:00 EST, [facility]/pharmacy #[id number], Partial fill upon patient request if [...] adult(Confirmed) Active ESSIE (obstructive sleep apnea)(Confirmed) Active *[facility] [phone] CARE MANAG ER JAMARI BOWER(Confirmed) Active Right shoulder pain(Confirmed) Active Diagnosis Diagnosis Type Effective Dates Health Status Cl inical Service Informant CTS (carpal tunnel syndrome) Discharge Diagnosis 02/17/22 Vital Signs Most recent to oldest [Reference Range]: 1 Height 177.6 cm (02/17/22 3:34 PM) Weight 121.0 kg (02/17/22 3:34 PM) Oxygen Saturation [94-100 %] 98 % (02/17/22 3:34 PM) Pulse Rate [55-90 bpm] 89 bpm (02/17/22 3:34 PM) Body Mass Index [18.5-24.99] 38.36 *>HHI* (02/17/22 3:34 PM) Blood Pressure [90-138/55-84 mm Hg] 132/ 80mm Hg (02/17/22 3:34 PM) Mode of Delivery (Oxygen) Room air (02/17/22 3:34 PM) Blood pressure sites Arm, left (02/17/22 3:34 PM) Social History Social History Type Response Smoking Status Never smoker entered on: 03/10/14 Sex
--- OUTSIDE RECORDS SUMMARY | 2024-06-30 17:37 | XMS_ITS | Continuity of Care Document ---
Author Organization [facility] Adult Address Unknown Care Team Providers Care Vice President Fixed Income Name Role Phone Naseem Page Primary Care Physician [place] [facility] [place] Date(s): 10/28/21 - 11/27/21 [facility] Attending Physician: AdmJose camacho Admitting Physician: Admtr, Ar8 Referring Physician: Admtr, Ar8 Allergies, Adverse Reactions, Alerts Substance Reaction Severity [...] Remberto rded influenza virus vaccine, inactivated 08/23/19 Remberot rded influenza virus vaccine, inactivated 09/02/18 Remberto rded influenza virus vaccine, inactivated 09/15/17 Remberto rded influenza virus vaccine, inactivated 09/16/15 Give n influenza virus vaccine, inactivated 08/09/09 Remberto rded tetanus/diphtheria/pertussis, acel(Tdap) 05/29/17 Given tetanus-diphtheria toxoids (Td) 05/12/08 Recorded tetanus-diphtheria toxoids (Td) 05/13/07 Given Medications Flonase 50 mcg/inh nasal spray 1 sprays, Nares, Both, 2 times a day, # 16 Gm, 1 Refills, Maintenance, 05/23/23 15:40:00 EDT, [id number], 1 sprays Nares, Both 2 times a day,x90 days, 177.6, cm, 07/14/21 15:23:00 EDT,Height Start Date: 05/23/23 Stop Date: 11/19/23 Status: Ordered Keppra XR 500 mg oral tablet, extended release 3 tablet, By Mouth, Daily in PM, DIRECTED., # 270 tablet, 0 Refills, [facility] STORE [id number], 177.6, cm,07/14/21 15:23:00 EDT, Height Start Date: 09/26/21 Status: Ordered Lexapro 10 mg oral tablet 1 tablet = 10 mg, By Mouth, Daily, # 30 tablet, 2 Refills, Maintenance, 10/31/21 8:22:00 EST, Tablet, [id number], Partial fill upon patient request if the prescription is for a schedule II opioid drug., 177.6, cm, 10/28/21 15:11:00 EST, Height Start Date: 10/31/21 Status: Ordered lisinopril 5 mg oral tablet 5 mg, 1, tablet, By Mouth, Daily, # 90 tablet, Refills 4, Tot. Refills 4, Maintenance, 01/12/21 13:41:00 EST, Route to Pharmacy Electronically, [facility]/pharmacy #[id number], Partial fill upon patient request if [...] Active ESSIE (obstructive sleep apnea)(Confirmed) Active *[facility] [phone] CARE MANAG CURRY BOWER(Confirmed) Active Right shoulder pain(Confirmed) Active Social History Social History Type Response Smoking Status Never smoker entered on: 03/10/14 Sex
--- OUTSIDE RECORDS SUMMARY | 2024-06-30 17:37 | XMS_ITS | Continuity of Care Document ---
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
--- OUTSIDE RECORDS SUMMARY | 2024-06-30 17:38 | XMS_ITS | Continuity of Care Document ---
Author Organization [facility] Address [address] [place] [address]- Care Team Providers Care Apparel Pattern Maker Name Role Phone Josue JAMESON, Elyse Daniel Primary Care Physician En[place] [facility] [place] Date(s): 12/01/19 - 12/08/19 [facility] [address] [address]- [facility] Attending Physician: Srinath ROJAS, Yves Villalpando Admitting Physician: Yves Yo MD Referring Physician: Elyse Salas NP Allergies, Adverse [...] ER Tablet Start Date: 09/05/19 Status: Ordered Ultram 50 mg oral tablet 1 tablet = 50 mg, By Mouth, Every 4 hours, PRN for pain, # 10 tablet, 0 Refills, Maintenance, 08/07/19 22:36:11 EDT, Tablet Start Date: 08/07/19 Status: Ordered Problem List Condition Effective Dates Status Health Status Inform ant Adjustment Disorder with Mix ed Anxiety and Depressed Mood(Confirmed) Active Autism spectrum disorder(Confirmed) Active Gynecomastia, male(Confirmed) Active Hypertension(Confirmed) Active Intractable localization-rel ated epilepsy(Confirmed) Active Obesity(Confirmed) Active ESSIE (obstructive sleep apnea)(Confirmed) Active *[facility] [phone] CARE MANAG ER JAMARI BOWER(Confirmed) Active Right shoulder pain(Confirmed) Active Vital Signs Most recent to oldest [Reference Range]: 1 Height 176 cm (12/01/19 9:01 AM) Weight 118.0 kg (12/01/19 9:01 AM) Oxygen Saturation [94-100 %] 97 % (12/01/19 9:01 AM) Pulse Rate [55-90 bpm] 84 bpm (12/01/19 9:01 AM) Body Mass Index [18.5-24.99] 38.09 *>HHI* (12/01/19 9:01 AM) Blood Pressure [90-138/55-84 mm Hg] 147/ 100mm Hg *H* (12/01/19 9:01 AM) Temperature [96.8-100.4 DegF] 98.4 DegF (12/01/19 9:01 AM) Blood pressure sites Arm, left (12/01/19 9:01 AM) Temperature Route Temporal (12/01/19 9:01 AM) Social History Social History Type Response Smoking Status Never smoker entered on: 03/10/14 Sex
--- OUTSIDE RECORDS SUMMARY | 2024-06-30 17:38 | XMS_ITS | Continuity of Care Document ---
Author Organization [facility] Adult Address [address] [place] [address]- Care Team Providers Care Physical Therapy Asst Name Role Phone Not on Staff, PCP Primary Care Physician Unavail able Encounter [facility] [place] [place] Date(s): 01/12/21 - 01/19/21 [facility] [address] [place] [address]- Encounter Diagnosis Encounter to establish care(Discharge Diagnosis) - 01/12/21 Intractable localization-related epilepsy(Discharge Diagnosis) - 01/12/21 Hypertension(Discharge Diagnosis) - 01/12/21 ESSIE (obstructive sleep apnea)(Discharge Diagnosis) - 01/12/21 Obesity(Discharge Diagnosis) - 01/12/21 Use of cannabinoid edibles(Discharge Diagnosis) - 01/12/21 IFG (impaired fasting glucose)(Discharge Diagnosis) - 01/12/21 Attending Physician: Nsaeem Page Allergies, Adverse Reactions, Alerts Substance Reaction [...] month supply Start Date: 10/04/20 Status: Ordered lisinopril 5 mg oral tablet 5 mg, 1, tablet, By Mouth, Daily, # 90 tablet, Refills 4, Tot. Refills 4, Maintenance, 01/12/21 13:41:00 EST, Route to Pharmacy Electronically, [facility]/pharmacy #[id number], Partial fill upon patient request [...] ESSIE (obstructive sleep apnea)(Confirmed) Active *[facility] [phone] CARE MANAG ER JAMARI BOWER(Confirmed) Active Right shoulder pain(Confirmed) Active Diagnosis Diagnosis Type Effective Dates Health Status Clinical Service Informant Encounter to establish care Discharge Diagnosis 01/12/21 Intractable localization-relate d epilepsy Discharge Diagnosis 01/12/21 Hypertension Discharge Diagnosis 01/12/21 ESSIE (obstructive sleep apnea) Discharge Diagnosis 01/12/21 Obesity Discharge Diagnosis 01/12/21 Use of cannabinoid edibles Discharge Diagnosis 01/12/21 IFG (impaired fasting glucose) Discharge Diagnosis 01/12/21 Vital Signs Most recent to oldest [Reference Range]: 1 2 Height 177.6 cm (01/12/21 1:50 PM) 177.6 cm (01/12/21 1:17 PM) Weight 119.5 kg (01/12/21 1:17 PM) Oxygen Saturation [94-100 %] 97 % (01/12/21 1:17 PM) Pulse Rate [55-90 bpm] 78 bpm (01/12/21 1:17 PM) Body Mass Index [18.5-24.99] 37.89 *>HHI* (01/12/21 1:17 PM) Blood Pressure [90-138/55-84 mm Hg] 150/ 94mm Hg *H* (01/12/21 1:50 PM) 138/90mm Hg (01/12/21 1:17 PM) Mode of Delivery (Oxygen) Room air (01/12/21 1:17 PM) Blood pressure sites Arm, right (01/12/21 1:17 PM) Social History Social History Type Response Smoking Status Never smoker entered on: 03/10/14 Sex
--- OUTSIDE RECORDS SUMMARY | 2024-06-30 17:38 | XMS_ITS | Continuity of Care Document ---
Author Organization [facility] Address [address] [place] [address], [address] Floor, [address] [place] [address]- Care Team Providers Care Jeeper Operator Name Role Phone Naseem Page Primary Care Physician [phone] [place] [facility] [place]22 - 11/02/22 [facility] [address] [facility], 3rd Floor, [address] [place] [address]- Allergies, Adverse Reactions, Alerts Substance Reaction Severity [...] Refills, Maintenance, 07/19/22 12:07:00 EDT, [facility], 90, USE 1 SPRAY BOTH NOSTRILS 2 [...] 1 Refills, Maintenance, 06/29/22 15:30:00 EDT, Tablet, [id number], Partial fill upon patient request if the prescription is for a schedule II opioid drug., 177.6, cm, 02/17/22 15:34:00 EDT, Height Start Date: 06/29/22 Stop Date: 12/26/22 Status: Ordered lisinopril 5 mg oral tablet 1, tablet, By Mouth, Daily, # 90 tablet, Refills 4, Route to Pharmacy Electronically, [facility], 177.6, cm, 02/17/22 15:34:00 EDT, Height Start [...] pack/packet, 0 Refills, Maintenance, 11/30/20 14:17:00 EST, [facility]/pharmacy #[id number], Partial fill upon patient request if [...] Active ESSIE (obstructive sleep apnea) Confirmed Active *[facility] [phone] 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 PCO Associate Professional Member Role: PCP Address: Address: [address] [place] [address]- Care Team Related Persons Name: BRITTON ORTA Address: home [address] [address] Name: MORTEZA LANDRY Address: home [address] [place] [address]
--- OUTSIDE RECORDS SUMMARY | 2024-06-30 17:38 | XMS_ITS | Continuity of Care Document ---
Author Organization [facility] Adult Address Unknown Care Team Providers Care Sandwich Hand Name Role Phone Naseem Page Primary Care Physician Encounter [facility] [place] Date(s): 10/28/21 - 11/04/21 [facility] Encounter Diagnosis Moderate major depression(Discharge Diagnosis) - 10/28/21 Anxiety(Discharge Diagnosis) - 10/28/21 ESSIE on CPAP(Discharge Diagnosis) - 10/28/21 Attending Physician: Naseem Page Allergies, Adverse Reactions, [...] Gm, 1 Refills, Maintenance, 05/23/23 15:40:00 EDT, [place], [facility]/pharmacy #[id number], 1 sprays Nares, Both 2 times a day,x90 days, 177.6, cm, 07/14/21 15:23:00 EDT,Height Start Date: 05/23/23 Stop Date: 11/19/23 Status: Ordered Keppra XR 500 mg oral tablet, extended release 3 tablet, By Mouth, Daily in PM, DIRECTED., # 270 tablet, 0 Refills, [facility], 177.6, cm,07/14/21 15:23:00 EDT, Height Start Date: 09/26/21 Status: Ordered Lexapro 10 mg oral tablet 1 tablet = 10 mg, By Mouth, Daily, # 30 tablet, 2 Refills, Maintenance, 10/31/21 8:22:00 EST, Tablet, [facility]/pharmacy #[id number], Partial fill upon patient request if the prescription is for a schedule II opioid drug., 177.6, cm, 10/28/21 15:11:00 EST, Height Start Date: 10/31/21 Status: Ordered lisinopril 5 mg oral tablet 5 mg, 1, tablet, By Mouth, Daily, # 90 tablet, Refills 4, Tot. Refills 4, Maintenance, 01/12/21 13:41:00 EST, Route to Pharmacy Electronically, [facility]/pharmacy #[id number], Partial fill upon patient request if the prescription is for a schedule II opioid drug.... Start Date: 01/12/21 Status: Ordered Proctozone HC 2.5% topical cream 1 applicator, Topically, 3 times a day, apply in a thin film to the affected skin and rub in gentlyand completely, # 30 Gm, 0 Refills, Maintenance, 09/01/20 11:10:00 EDT, [facility]/pharmacy #[id number], 1 applicator Topically 3 times a [...] Active ESSIE (obstructive sleep apnea)(Confirmed) Active *[facility] [phone] CARE MANAG ER JAMARI BOWER(Confirmed) Active Right shoulder pain(Confirmed) Active Diagnosis Diagnosis Type Effective Dates Health Status Clinical Service Informant Moderate major depression Discharge Diagnosis 10/28/21 Anxiety Discharge Diagnosis 10/28/21 ESSIE on CPAP Discharge Diagnosis 10/28/21 Vital Signs Most recent to oldest [Reference Range]: 1 Height 177.6 cm (10/28/21 3:11 PM) Weight 119.1 kg (10/28/21 3:11 PM) Oxygen Saturation [94-100 %] 99 % (10/28/21 3:11 PM) Pulse Rate [55-90 bpm] 86 bpm (10/28/21 3:11 PM) Body Mass Index [18.5-24.99] 37.76 *>HHI* (10/28/21 3:11 PM) Blood Pressure [90-138/55-84 mm Hg] 146/ 80mm Hg *H* (10/28/21 3:11 PM) Respiratory Rate [16-30 br/min] 16 br/mi n (10/28/21 3:11 PM) Mode of Delivery (Oxygen) Room air (10/28/21 3:11 PM) Blood pressure sites Arm, right (10/28/21 3:11 PM) Weight Obtained Via Standing scale (10/28/21 3:11 PM) Social History Social History Type Response Smoking Status Never smoker entered on: 03/10/14 Sex
--- OUTSIDE RECORDS SUMMARY | 2024-06-30 17:38 | XMS_ITS | Continuity of Care Document ---
Author Organization [facility] Address [address] [place] [address]- Care Team Providers Care Commercial Litigation Associate Name Role Phone Josue JAMESON, Elyse Daniel Primary Care Physician Encounter [facility] [place] Date(s): 12/01/19 - 12/11/19 [facility] [address] [address]- [facility] Attending Physician: Jose Kirk Admitting Physician: Jose Kirk Referring Physician: AdmJose camacho Allergies, Adverse Reactions, Alerts Substance Reaction Severity [...] Obesity(Confirmed) Active ESSIE (obstructive sleep apnea)(Confirmed) Active *[facility] [phone] CARE MANAG ER JAMARI BOWER(Confirmed) Active Right shoulder pain(Confirmed) Active Vital Signs Most recent to oldest [Reference Range]: 1 Height 176 cm (12/10/19 3:38 PM) Weight 118.0 kg (12/10/19 3:38 PM) Social History Social History Type Response Smoking Status Never smoker entered on: 03/10/14 Sex
--- OUTSIDE RECORDS SUMMARY | 2024-06-30 17:38 | XMS_ITS | Continuity of Care Document ---
Author Organization [facility] Adult Address [address] [place] [address]- Care Team Providers Care Digital Associate Media Director Name Role Phone Naseem Page Primary Care Physician [phone] Encounter [facility] Date(s): 10/27/22 - 11/26/22 [facility] [address] [place] [address]- Attending Physician: Jose Kirk Admitting Physician: Jose [...] Refills, Maintenance, 07/19/22 12:07:00 EDT, [facility], 90, USE 1 SPRAY BOTH NOSTRILS 2 [...] 1 Refills, Maintenance, 06/29/22 15:30:00 EDT, Tablet, [facility]/pharmacy #0315, Partial fill upon patient request if the prescription is for a schedule II opioid drug., 177.6, cm, 02/17/22 15:34:00 EDT, Height Start Date: 06/29/22 Stop Date: 12/26/22 Status: Ordered lisinopril 5 mg oral tablet 1, tablet, By Mouth, Daily, # 90 tablet, Refills 4, Route to Pharm[facility] Electronically, [facility], 177.6, cm, 02/17/22 15:34:00 EDT, Height Start [...] Active ESSIE (obstructive sleep apnea) Confirmed Active *[facility] [phone] 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
--- OUTSIDE RECORDS SUMMARY | 2024-06-30 17:38 | XMS_ITS | Continuity of Care Document ---
Author Organization [facility] Address Unknown Care Team Providers Care Business Development Analyst Name Role Phone Naseem Page Primary Care Physician Encounter [facility] [place] Date(s): 01/18/22 - 02/17/22 [facility] Allergies, Adverse Reactions, Alerts Substance Reaction Severity [...] DAY,X90 DAYS, # 16 mL, 5 Refills, [facility], 30, USE 1 SPRAY BOTH NOSTRILS 2 [...] 1 Refills, Maintenance, 12/26/21 11:20:00 EST, Tablet, [facility]/pharmacy #[id number], Partial fill upon patient request if the prescription is for a schedule II opioid drug., 177.6, cm, 12/22/21 16:30:00 EST, Height Start Date: 12/26/21 Stop Date: 06/24/22 Status: Ordered lisinopril 5 mg oral tablet 5 mg, 1, tablet, By Mouth, Daily, # 90 tablet, Refills 4, Tot. Refills 4, Maintenance, 01/12/21 13:41:00 EST, Route to Pharmacy Electronically, [facility]/pharmacy #0315, Partial fill upon patient request if the prescription is for a schedule II opioid drug.... Start Date: 01/12/21 Status: Ordered Proctozone HC 2.5% topical cream 1 applicator, Topically, 3 times a day, apply in a thin film to the affected skin and rub in gentlyand completely, # 30 Gm, 0 Refills, Maintenance, 09/01/20 11:10:00 EDT, [facility]/pharmacy #[id number], 1 applicator Topically 3 times a day,x14 days,Instr:apply i... Start Date: 09/01/20 Stop Date: 09/15/20 Status: Ordered Readi-Cat 2 oral suspension See Instructions, 2 bottles as per radiology 1 the evening before CAT scan with the morning of CAT scan, # 2 pack/packet, 0 Refills, Maintenance, 11/30/20 14:17:00 EST, [facility]/pharmacy #[id number], Partial fill upon [...] adult(Confirmed) Active ESSIE (obstructive sleep apnea)(Confirmed) Active *[facility] [phone] CARE MANAG CURRY BOWER(Confirmed) Active Right shoulder pain(Confirmed) Active Social History Social History Type Response Smoking Status Never smoker entered on: 03/10/14 Sex
--- OUTSIDE RECORDS SUMMARY | 2024-06-30 17:38 | XMS_ITS | Continuity of Care Document ---
Author Organization [facility] Address [address] [place] [address]- Care Team Providers Care Receiving Operator Name Role Phone Not on Staff, PCP Primary Care Physician Unavail able Encounter [facility] [place] Date(s): 11/30/20 - 12/30/20 [facility] [address] [place] [address]- Attending Physician: Jose Kirk Admitting Physician: AdmtrJose Referring Physician: Admtr ArAziza Allergies, Adverse Reactions, Alerts Substance Reaction Severity [...] pack/packet, 0 Refills, Maintenance, 11/30/20 14:17:00 EST, [facility]/pharmacy #[id number], Partial fill upon patient request [...] adult(Confirmed) Active ESSIE (obstructive sleep apnea)(Confirmed) Active *[facility] [phone] CARE MANAG CURRY BOWER(Confirmed) Active Right shoulder pain(Confirmed) Active Social History Social History Type Response Smoking Status Never smoker entered on: 03/10/14 Sex
--- OUTSIDE RECORDS SUMMARY | 2024-06-30 17:38 | XMS_ITS | Continuity of Care Document ---
Author Organization [facility] Adult Address [address] [place] [address]- Care Team Providers Care Apprentice Embalmer Name Role Phone Naseem Page Primary Care Physician [facility]counter [facility] Date(s): 11/14/23 - 12/14/23 [facility] [address] [place] [address]- Attending Physician: Jose Kirk Admitting Physician: AdmJose camacho Referring Physician: AdmtrJose Allergies, Adverse Reactions, Alerts [...] Daily, # 90 tablet, 1 Refills, Maintenance, 08/10/23 20:51:00 EDT, [facility], 177.6, cm, 01/01/23 9:26:00 EST, Height Start Date: 08/10/23 Status: Ordered fluticasone 50 mcg/inh nasal spray [...] a day, Brand name medically necessary, # 60 tablet, 5 Refills,Maintenance, 10/08/23 7:25:00 EST, [facility]t, [facility], Partial fill upon patient request ifthe prescription is for a schedule II opioid drug.... 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
--- OUTSIDE RECORDS SUMMARY | 2024-06-30 17:38 | XMS_ITS | Continuity of Care Document ---
Author Organization [facility] Address [address] [place] [address]- Care Team Providers Care Guard Manager Name Role Phone Not on Staff, PCP Primary Care Physician Unavail able [place] [facility] [place] - 01/27/[address] [address]- Attending Physician: Jose Kirk Admitting Physician: Jose [...] 01/12/21 13:41:00 EST, Route to Pharmacy Electronically, [facility]/pharmacy #[id number], Partial fill upon patient request if the [...] adult(Confirmed) Active ESSIE (obstructive sleep apnea)(Confirmed) Active *[facility] [phone] CARE MANAG ER JAMARI BOWER(Confirmed) Active Right shoulder pain(Confirmed) Active Social History Social History Type Response Smoking Status Never smoker entered on: 03/10/14 Sex
--- OUTSIDE RECORDS SUMMARY | 2024-06-30 17:38 | XMS_ITS | Continuity of Care Document ---
Author Organization [facility] Address [address] [place] [address]- Care Team Providers Care Polisher Eyeglass Frames Name Role Phone Naseem Page Primary Care Physician Encounter [facility] Date(s): 01/22/24 - 02/21/24 [facility] [address] [place] [address]- Allergies, Adverse Reactions, Alerts Substance Reaction Severity [...] Refills, Maintenance, 01/30/24 7:03:00 EDT, [facility], 177.6, cm, 01/07/24 15:36:00 EST, Height Start [...] Date: 10/08/23 Stop Date: 04/05/24 Status: Ordered Problem List Condition Confirmation Course [...] ESSIE (obstructive sleep apnea) Confirmed Active *[facility] [phone] 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
--- OUTSIDE RECORDS SUMMARY | 2024-06-30 17:38 | XMS_ITS | Continuity of Care Document ---
Author Organization [facility] Address Unknown Care Team Providers Care Clam Shucker Name Role Phone Naseem Page Primary Care Physician Encounter [facility] [place] Date(s): 12/02/21 - 04/01/22 [facility] Attending Physician: Naseem Page Allergies, Adverse Reactions, [...] # 16 mL, 5 Refills, [facility], 30, USE 1 SPRAY BOTH NOSTRILS 2 [...] 4, Route to [facility] Electronically, [facility], 177.6, cm, 02/17/22 15:34:00 EDT, Height Start [...] ESSIE (obstructive sleep apnea)(Confirmed) Active *[facility] [phone] CARE MANAG CURRY BOWER(Confirmed) Active Right shoulder pain(Confirmed) Active Social History Social History Type Response Smoking Status Never smoker entered on: 03/10/14 Sex
--- OUTSIDE RECORDS SUMMARY | 2024-06-30 17:38 | XMS_ITS | Continuity of Care Document ---
Author Organization [facility] Address [address] [place] [address] ve [address] [place] [address]- Care Team Providers Care Sweatband Decorating Machine Operator Name Role Phone Not on Staff, PCP Primary Care Physician Unavail able Encounter [facility] [place] Date(s): 09/30/20 - 01/12/[address] [place] [address]- Attending Physician: David Kauffman MD Allergies, Adverse Reactions, Alerts Substance Reaction Severity [...] 01/12/21 13:41:00 EST, Route to Pharmacy Electronically, [facility]/pharmacy #[id number], Partial fill upon patient request if the prescription is for a schedule II opioid drug.... Start Date: 01/12/21 Status: Ordered Proctozone HC 2.5% topical cream 1 applicator, Topically, 3 times a day, apply in a thin film to the affected skin and rub in gentlyand completely, # 30 Gm, 0 Refills, Maintenance, 10/14/20 11:10:00 EDT, [facility], 1 applicator Topically [...] ESSIE (obstructive sleep apnea)(Confirmed) Active *[facility] [phone] CARE MANAG CURRY BOWER(Confirmed) Active Right shoulder pain(Confirmed) Active Social History Social History Type Response Smoking Status Never smoker entered on: 03/10/14 Sex
--- OUTSIDE RECORDS SUMMARY | 2024-06-30 17:38 | XMS_ITS | Continuity of Care Document ---
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
--- OUTSIDE RECORDS SUMMARY | 2024-06-30 17:38 | XMS_ITS | Continuity of Care Document ---
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
--- OUTSIDE RECORDS SUMMARY | 2024-06-30 17:38 | XMS_ITS | Continuity of Care Document ---
Author Organization [facility] ter Address [address] [place] [address]- Care Team Providers Care Bank Worker Name Role Phone Josue JAMESON, Keila Primary Care Physician Encounter [facility] Date(s): 12/03/19 - 12/10/[address] [address]- [facility] Attending Physician: Dylan Al MD Allergies, Adverse Reactions, Alerts Substance Reaction [...] Obesity(Confirmed) Active ESSIE (obstructive sleep apnea)(Confirmed) Active *[facility] [phone] CARE MANAG ER JAMARI BOWER(Confirmed) Active Right shoulder pain(Confirmed) Active Social History Social History Type Response Smoking Status Never smoker entered on: 03/10/14 Sex
--- OUTSIDE RECORDS SUMMARY | 2024-06-30 17:38 | XMS_ITS | Continuity of Care Document ---
Author Organization [facility] Address [address] [place] [address]- Care Team Providers Care Progressive Assembler And Fitter Name Role Phone Josue JAMESON, Elyse Daniel Primary Care Physician Encounter [facility] Date(s): 07/21/20 - 08/20/20 [facility] [address] [place] [address]- [facility] Attending Physician: Jose Kirk Admitting Physician: Jose [...] Dry Weight Start Date: 04/13/20 Status: Ordered Problem List Condition Effective Dates Status Health Status Inform ant Adjustment Disorder with Mix ed Anxiety and Depressed Mood(Confirmed) Active Autism spectrum disorder(Confirmed) Active Gynecomastia, male(Confirmed) Active Hypertension(Confirmed) Active Intractable localization-rel ated epilepsy(Confirmed) Active Obesity(Confirmed) Active Class 2 obesity with body ma ss index (BMI) of 38.0 to 38.9 in adult(Confirmed) Active ESSIE (obstructive sleep apnea)(Confirmed) Active *[facility] [phone] CARE MANAG CURRY BOWER(Confirmed) Active Right shoulder pain(Confirmed) Active Vital Signs Most recent to oldest [Reference Range]: 1 Height 176 cm (12/10/19 3:38 PM) Weight 118.0 kg (12/10/19 3:38 PM) Social History Social History Type Response Smoking Status Never smoker entered on: 03/10/14 Sex
--- OUTSIDE RECORDS SUMMARY | 2024-06-30 17:38 | XMS_ITS | Continuity of Care Document ---
Author Organization [facility] Address [address] [facility], 3r d Floor, [address] [place] [address]- Care Team Providers Care Automobile Club Information Clerk Name Role Phone Josue JAMESON, Elyse Daniel Primary Care Physician [place] [facility] [place]13/20 - 04/20/20 [facility] [address], [address]rd Floor, [address] [place] [address] [facility] Attending Physician: Nuris Mercado MD Allergies, Adverse Reactions, Alerts Substance Reaction [...] Obesity(Confirmed) Active ESSIE (obstructive sleep apnea)(Confirmed) Active *[facility] [phone] CARE MANAG CURRY BOWER(Confirmed) Active Right shoulder pain(Confirmed) Active Social History Social History Type Response Smoking Status Never smoker entered on: 03/10/14 Sex
--- OUTSIDE RECORDS SUMMARY | 2024-06-30 17:38 | XMS_ITS | Continuity of Care Document ---
Author Organization [facility] Address Unknown Care Team Providers Care Assembled Wood Products Repairer Name Role Phone Naseem Page Primary Care Physician Encounter [facility] Date(s): 12/22/21 - 12/29/21 [facility] Encounter Diagnosis Adjustment Disorder with Mixed Anxiety and Depressed Mood(Discharge Diagnosis) - 12/22/21 ESSIE (obstructive sleep apnea)(Discharge Diagnosis) - 12/22/21 Obese class II(Discharge Diagnosis) - 12/22/21 Trouble in sleeping(Discharge Diagnosis) - 12/22/21 Attending Physician: Naseem Page Allergies, Adverse Reactions, [...] TIMES A DAY,X90 DAYS, # 16 mL, 1 [facility]ills, [facility], 30, USE 1 SPRAY BOTH NOSTRILS 2 TIMES A DAY,X90 DAYS, 177.6, cm, 12/22/21 16:30:00 EST, Height Start Date: 12/26/21 Status: Ordered Keppra XR 500 mg oral tablet, extended release 3 tablet, By Mouth, Daily in PM, DIRECTED., # 270 tablet, 0 Refills, [facility], 177.6, cm,10/28/21 15:11:00 EST, Height Start Date: 12/20/21 Status: Ordered Lexapro 10 mg oral tablet 1 tablet = 10 mg, By Mouth, Daily, # 90 tablet, 1 Refills, Maintenance, 12/26/21 11:20:00 EST, Tablet, [facility]/pharmacy #0315, Partial fill upon patient request if the prescription is for a schedule II opioid drug., 177.6, cm, 12/22/21 16:30:00 EST, Height Start Date: 12/26/21 Stop Date: 06/24/22 Status: Ordered lisinopril 5 mg oral tablet 5 mg, 1, tablet, By Mouth, Daily, # 90 tablet, Refills 4, Tot. Refills 4, Maintenance, 01/12/21 13:41:00 EST, Route to Pharmacy Electronically, [facility]/pharmacy #[id number], Partial fill upon patient request [...] pack/packet, 0 Refills, Maintenance, 11/30/20 14:17:00 EST, [facility]/pharmacy #0315, Partial fill upon patient request [...] Active ESSIE (obstructive sleep apnea)(Confirmed) Active *[facility] [phone] CARE MANAG CURRY BOWER(Confirmed) Active Right shoulder pain(Confirmed) Active Diagnosis Diagnosis Type Effective Dates Health Status Clinical Service Informant Adjustment Disorder with Mixed Anxiety and Depressed Mood Discharge Diagnosis 12/22/21 ESSIE (obstructive sleep apnea) Discharge Diagnosis 12/22/21 Obese class II Discharge Diagnosis 12/22/21 Trouble in sleeping Discharge Diagnosis 12/22/21 Vital Signs Most recent to oldest [Reference Range]: 1 Height 177.6 cm (12/22/21 4:30 PM) Weight 119.6 kg (12/22/21 4:30 PM) Oxygen Saturation [94-100 %] 96 % (12/22/21 4:30 PM) Pulse Rate [55-90 bpm] 68 bpm (12/22/21 4:30 PM) Body Mass Index [18.5-24.99] 37.92 *>HHI* (12/22/21 4:30 PM) Blood Pressure [90-138/55-84 mm Hg] 130/ 86mm Hg (12/22/21 4:30 PM) Mode of Delivery (Oxygen) Room air (12/22/21 4:30 PM) Blood pressure sites Arm, left (12/22/21 4:30 PM) Social History Social History Type Response Smoking Status Never smoker entered on: 03/10/14 Sex
--- OUTSIDE RECORDS SUMMARY | 2024-06-30 17:38 | XMS_ITS | Continuity of Care Document ---
Author Organization [facility] Adult Address Unknown Care Team Providers Care Wood Planer Name Role Phone Naseem Page Primary Care Physician [phone] En[place] [facility] [place] Date(s[place] 03/02/22 - 04/01/22 [facility] Attending Physician: AdmJose camacho [...] DAY,X90 DAYS, # 16 mL, 5 Refills, [facility], 30, USE 1 SPRAY BOTH NOSTRILS 2 [...] tablet, Refills 4, Route to Pharmacy Electronically, [facility], 177.6, cm, 02/17/22 15:34:00 EDT, Height Start [...] pack/packet, 0 Refills, Maintenance, 11/30/20 14:17:00 EST, [facility]/pharmacy #[id number], Partial fill upon patient request if the [...] (obstructive sleep apnea)(Confirmed) Active *[facility] [phone] CARE MANAG CURRY BOWER(Confirmed) Active Right shoulder pain(Confirmed) Active Social History Social History Type Response Smoking Status Never smoker entered on: 03/10/14 Sex
--- OUTSIDE RECORDS SUMMARY | 2024-06-30 17:38 | XMS_ITS | Continuity of Care Document ---
Author Organization [facility] Address [address] [place] [address], [address]r d Floor, [address] [place] [address]- Care Team Providers Care Cable Maintainer Name Role Phone Naseem Page Primary Care Physician [phone] Encounter [facility] Date(s): 02/28/23 - 03/30/23 [facility] [address] [place], [address]rd Floor, [address] [place] [address]- Allergies, Adverse Reactions, Alerts Substance Reaction Severity [...] tablet, 1 Refills, Maintenance, 12/21/22 14:57:00 EST, [facility] 750[facility], 177.6, cm, 10/27/22 16:09:00 EST, Height Start Date: 12/21/22 Status: Ordered fluticasone 50 mcg/inh nasal spray See Instructions, USE 1 SPRAY BOTH NOSTRILS 2 TIMES A DAY,X90 DAYS, # 48 mL, 1 Refills, Maintenance, 01/17/23 19:21:00 EST, [facility]/pharmacy #0315, 90, USE 1 SPRAY BOTH NOSTRILS 2 TIMES A DAY,X90 DAYS, 177.6, cm, 01/01/23 9:26:00 EST, Height Start Date: 01/17/23 Status: Ordered Keppra XR 500 mg oral tablet, extended release 3 tablet, By Mouth, Daily in PM, DIRECTED., # 270 tablet, 3 Refills, Maintenance, 03/01/23 8:52:00 EDT, [facility]/pharmacy #0315, 177.6, cm, 01/01/23 9:26:00 EST, Height Start Date: 03/01/23 Stop Date: 02/24/24 Status: Ordered lisinopril 5 mg oral tablet 1, tablet, By Mouth, Daily, # 90 tablet, Refills 4, Route to Pharmacy Electronically, [facility] 45[facility], 177.6, cm, 02/17/22 15:34:00 EDT, Height Start Date: 03/22/22 Status: Ordered Proctozone HC 2.5% topical cream 1 applicator, Topically, 3 times a day, apply in a thin film to the affected skin and rub in gentlyand completely, # 30 Gm, 0 Refills, Maintenance, 09/01/20 11:10:00 EDT, [facility]/pharmacy #0315, 1 applicator Topically 3 times a day,x14 days,Instr:apply i... 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 JAMARI BOWER Confirmed Active Severe obesity (BMI 35.0-39.9) with comorbidity Confirmed Active Right shoulder pain Confirmed Active Social History Social History Type Response Smoking Status Never smoker entered on: 03/10/14 Sex Patient Care team information Care Team Personnel Name: Naseem Page Position: [facility] PCO Associate Professional Member Role: PCP Address: Address: [address] [place] [address] Care Team Related Persons Name: BRITTON ORTA Address: home [address] [address] Name: MORTEZA LANDRY Address: home [address] [place] [address]
--- OUTSIDE RECORDS SUMMARY | 2024-06-30 17:38 | XMS_ITS | Continuity of Care Document ---
Author Organization [facility] Address [address] [place] [address], [address]r d Floor, [address] [place] [address]- Care Team Providers Care Remotely Operated Vehicle Name Role Phone Naseem Page Primary Care Physician [phone] Encounter [facility] [place] Date(s): 05/07/23 - 06/06/23 [facility] [address] [place], 3rd Floor, [address] [place] [address] Allergies, Adverse Reactions, Alerts Substance Reaction Severity [...] tablet, 1 Refills, Maintenance, 12/21/22 14:57:00 EST, [facility], 177.6, cm, 10/27/22 16:09:00 EST, Height Start Date: 12/21/22 Status: Ordered fluticasone 50 mcg/inh nasal spray See Instructions, USE 1 SPRAY BOTH NOSTRILS 2 TIMES A DAY,X90 DAYS, # 48 mL, 1 Refills, Maintenance, 01/17/23 19:21:00 EST, [facility]/pharmacy #0315, 90, USE 1 SPRAY BOTH NOSTRILS 2 TIMES A DAY,X90 DAYS, 177.6, cm, 01/01/23 9:26:00 EST, Height Start Date: 01/17/23 Status: Ordered Keppra 750 mg oral tablet 1 tablet = 750 mg, By Mouth, 2 times a day, # 60 tablet, 2 Refills, Maintenance, 05/11/23 20:35:00 EDT, Tablet, [facility], Partial fill upon patient request if the prescription is for a schedule II opioid drug., 177.6, cm, 01/01/23 9:26:00 ES... 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
--- OUTSIDE RECORDS SUMMARY | 2024-06-30 17:38 | XMS_ITS | Continuity of Care Document ---
Author Organization [facility] Adult Address Unknown Care Team Providers Care Specialty Therapist Name Role Phone Naseem Page Primary Care Physician En[place] [facility] [place] Date(s): 12/26/21 - 01/25/22 [facility] Allergies, Adverse Reactions, Alerts Substance Reaction [...] DAY,X90 DAYS, # 16 mL, 5 Refills, [facility] 30, USE 1 SPRAY BOTH NOSTRILS [...] sleep apnea)(Confirmed) Active *[facility] [phone] CARE MANAG CURRY BOWER(Confirmed) Active Right shoulder pain(Confirmed) Active Social History Social History Type Response Smoking Status Never smoker entered on: 03/10/14 Sex
--- OUTSIDE RECORDS SUMMARY | 2024-06-30 17:38 | XMS_ITS | Continuity of Care Document ---
Author Organization [facility] Address [address] [place] [address]- Care Team Providers Care Geriatric Nurse Practitioner Name Role Phone Naseem Page Primary Care Physician [phone] [place] [facility] [place] Date(s): 11/05/23 - 11/12/23 [facility] [address] [place] [address]- Encounter Diagnosis Hypertension(Discharge Diagnosis) - 11/05/23 Grief reaction(Discharge Diagnosis) - 11/05/23 Attending Physician: Naseem Page Allergies, Adverse Reactions, [...] Refills, Maintenance, 08/10/23 20:51:00 EDT, [facility], 177.6, cm, 01/01/23 9:26:00 EST, Height Start Date: 08/10/23 Status: Ordered fluticasone 50 mcg/inh nasal spray See Instructions, USE 1 SPRAY BOTH NOSTRILS 2 TIMES A DAY,X90 DAYS, # 48 mL, 1 Refills, Maintenance, 01/17/23 19:21:00 EST, [facility]/pharmacy #0315, 90, USE 1 SPRAY BOTH NOSTRILS 2 TIMES A DAY,X90 DAYS, 177.6, cm, 01/01/23 9:26:00 EST, Height Start Date: 01/17/23 Status: Ordered Keppra 750 mg oral tablet 1 tablet = 750 mg, By Mouth, 2 times a day, Brand name medically necessary, # 60 tablet, 5 Refills,Maintenance, 10/08/23 7:25:00 EST, Tablet, [facility]/pharmacy #0315, Partial fill upon patient request ifthe prescription is for a schedule II opioid drug.... Start Date: 10/08/23 Stop Date: 04/05/24 Status: Ordered lisinopril 5 mg oral tablet 1, tablet, By Mouth, Daily, # 90 tablet, Refills 1, Maintenance, 06/20/23 13:29:00 EDT, Route to Pharmacy Electronically, [facility], 177.6, cm, 01/01/23 9:26:00 EST, Height Start [...] (obstructive sleep apnea) Confirmed Active *[facility] [phone] PLUG GROWER JAMARI BOWER Confirmed Active Severe obesity Confirmed Active Right shoulder pain Confirmed Active Diagnosis Diagnosis Type Effective Dates Health Status Cl inical Service Informant Hypertension Discharge Diagnosis 11/05/23 Grief reaction Discharge Diagnosis 11/05/23 Vital Signs Most recent to oldest [Reference Range]: 1 Height 177.6 cm (11/05/23 7:54 AM) Weight 127.2 kg (11/05/23 7:54 AM) Oxygen Saturation [94-100 %] 97 % (11/05/23 7:54 AM) Pulse Rate [55-90 bpm] 89 bpm (11/05/23 7:54 AM) Body Mass Index [18.5-24.99 kg/m2] 40.33 kg/m2 *>HHI* (11/05/23 7:54 AM) Blood Pressure [90-138/55-84 mm Hg] 132/ 73mm Hg (11/05/23 7:54 AM) Blood pressure sites Arm, right (11/05/23 7:54 AM) Social History Social History Type Response Smoking Status Never smoker entered on: 03/10/14 Sex Note * Eli Trejo RN: PERFORM, SIGN, VERIFY Event Display: Patient Education/Instruction Authored Date: [id number] [facility] *MEERA Aleman Clinical Summary Name CARSON LANDRY Age 38 Years 1985 PCP Mckay JENSEN, [facility]em Lr [phone] Visit Date 11/05/2023 07:38:00 Patient Instructions Stop taking lisinopril until we??speak again Additional Instructions: Scheduled Appointments?? Future Appointments ?*MEERA??Carlos??Love ?Phone:??--?Fax:??-- ?Appt. Date:??01/03/2024?12:50 PM ?Scheduled Provider:??Mckay JENSEN, Naseem Lr Follow-Up Instructions ?? Diagnosis Medications: Please continue your medications until treatment is completed or stopped by your provider. Discuss any questions related to medications with your provider. Medications to Continue with No Changes These medications were not printed or sent to your pharmacy Durable Medical Equipment (Carpal tunnel splint right) Wear splint every night x 3 months. Dx CTS. Refills: 0. Next Dose: Escitalopram (escitalopram 10 mg oral tablet) 1 tab(s) Oral Daily. Refills: 1. Next Dose: Fluticasone Nasal (fluticasone 50 mcg/inh nasal spray) USE 1 SPRAY BOTH NOSTRILS 2 TIMES A DAY,X90 DAYS. Refills: 1. Next Dose: levETIRAcetam (Keppra 750 mg oral tablet) 1 tab(s) Oral twice a day for 30 Days. Brand name medically necessary. Refills: 5. Next Dose: Lisinopril (lisinopril 5 mg oral tablet) 1 tab(s) Oral Daily. Refills: 1. Next Dose: Allergy Info:?? sulfa drugs; penicillin Medications Given This Visit Future Orders ?No future orders Vital Signs Height 177.6 cm Weight 127.2 kg BMI 40.33 kg/m2 Blood Pressure 132 mm Hg/73 mm Hg Temperature Pulse Rate 89 bpm Respiratory Rate 02 Sat Mode of Delivery 97 %/ You can now view a summary of your hospital visit from the comfort of your home through a free online portal called [employer]. [employer] is a website that allows you to securely view your medical information including discharge summary, medications and follow-up visits. ??You can alsosend a secure electronic message to your doctor???s office to request appointments, renew medications or just ask a question. You can enroll at [email or web address] or register during your next office visit. [...] primary care provider, you may find a [facility] provider by calling [facility] [employer] [facility] at [phone]. [facility], in keeping with [facility] guidance, no longer requires face masks for staff, patientsor visitors in most situations. Similar to time spent indoors at other locations, there is the chance that you were exposed to respiratory viruses during your time with us (such as flu or COVID-19).? If you develop symptoms concerning for a viral respiratory infection, please seek testing (and treatment if indicated) from your medical provider or home test kit. For information about the plan of care [...] Professional Member Role: PCP Address: Address: [address] [place] [address]- Care Team Related Persons Name: BRITTON ORTA Address: [address] [address] Name: MORTEZA LANDRY Address: home [address] [place] [address]
--- OUTSIDE RECORDS SUMMARY | 2024-06-30 17:38 | XMS_ITS | Continuity of Care Document ---
Author Organization [facility] Address [address] [place] [address], [address]r d Floor, [address] [place] [address]- Care Team Providers Care Security Agent Name Role Phone Naseem Page Primary Care Physician [facility] Date(s): 02/28/23 - 03/30/23 [facility] [address], 3rd Floor, [address] [place] [address]- Allergies, Adverse Reactions, Alerts Substance Reaction Severity [...] tablet, 1 Refills, Maintenance, 12/21/22 14:57:00 EST, [facility], 177.6, cm, 10/27/22 16:09:00 EST, Height Start Date: 12/21/22 Status: Ordered fluticasone 50 mcg/inh nasal spray See Instructions, USE 1 SPRAY BOTH NOSTRILS 2 TIMES A DAY,X90 DAYS, # 48 mL, 1 Refills, Maintenance, 01/17/23 19:21:00 EST, [facility]/pharmacy #[id number], 90, USE 1 SPRAY BOTH NOSTRILS 2 TIMES A DAY,X90 DAYS, 177.6, cm, 01/01/23 9:26:00 EST, Height Start Date: 01/17/23 Status: Ordered Keppra XR 500 mg oral tablet, extended release 3 tablet, By Mouth, Daily in PM, DIRECTED., # 270 tablet, 3 Refills, Maintenance, 03/01/23 8:52:00 EDT, [facility]/pharmacy #[id number], 177.6, cm, 01/01/23 9:26:00 EST, Height Start Date: 03/01/23 Stop Date: 02/24/24 Status: Ordered lisinopril 5 mg oral tablet 1, tablet, By Mouth, Daily, # 90 tablet, Refills 4, Route to Pharmacy Electronically, [facility] 87149, 177.6, cm, 02/17/22 15:34:00 EDT, Height Start Date: 03/22/22 Status: Ordered Proctozone HC 2.5% topical cream 1 applicator, Topically, 3 times a day, apply in a thin film to the affected skin and rub in gentlyand completely, # 30 Gm, 0 Refills, Maintenance, 09/01/20 11:10:00 EDT, [facility]/pharmacy #[id number], 1 applicator Topically 3 times a day,x14 days,Instr:apply i... 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
--- OUTSIDE RECORDS SUMMARY | 2024-06-30 17:38 | XMS_ITS | Continuity of Care Document ---
Author Organization [facility] Address [address] [place] [address]- Care Team Providers Care Rodding Anode Worker Name Role Phone Naseem Page Primary Care Physician Encounter [facility] Date(s): 11/14/23 - 11/21/23 [facility] [address] [place] [address]- Encounter Diagnosis HTN (hypertension)(Discharge Diagnosis) - 11/14/23 Attending Physician: Naseem Page Allergies, Adverse Reactions, [...] Refills, Maintenance, 08/10/23 20:51:00 EDT, [facility], 177.6, cm, 01/01/23 9:26:00 EST, Height Start Date: 08/10/23 Status: Ordered fluticasone 50 mcg/inh nasal spray See Instructions, USE 1 SPRAY BOTH NOSTRILS 2 TIMES A DAY,X90 DAYS, # 48 mL, 1 Refills, Maintenance, 01/17/23 19:21:00 EST, [facility]/pharmacy #[id number], 90, USE 1 SPRAY BOTH NOSTRILS 2 TIMES A DAY,X90 DAYS, 177.6, cm, 01/01/23 9:26:00 EST, Height Start Date: 01/17/23 Status: Ordered Keppra 750 mg oral tablet 1 tablet = 750 mg, By Mouth, 2 times a day, Brand name medically necessary, # 60 tablet, 5 Refills,Maintenance, 10/08/23 7:25:00 EST, Tablet, [facility]/pharmacy #[id number], Partial fill upon patient request ifthe prescription is for a schedule II opioid drug.... 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 MACHINE OPERATOR JAMARI BOWER Confirmed Active Severe obesity Confirmed Active Right shoulder pain Confirmed Active Diagnosis Diagnosis Type Effective Dates Health Status Cl inical Service Informant HTN (hypertension) Discharge Diagnosis 11/14/23 Social History Social History Type Response Smoking Status Never smoker entered on: 03/10/14 Sex Patient Care team information Care Team Personnel Name: Naseem Page Position: S PCO Associate Professional Member Role: PCP Address: Address: [address] [place] [id number] Care Team Related Persons Name: BRITTON ORTA Address: [address] [address] Name: MORTEZA LANDRY Address: home [address] [place] [address]
--- OUTSIDE RECORDS SUMMARY | 2024-06-30 17:38 | XMS_ITS | Continuity of Care Document ---
Author Organization [facility] Address [address] [place] [address]- Care Team Providers Care Crop And Soil Scientist Name Role Phone Naseem Page Primary Care Physician [facility] Date[facility]s): 03/26/24 - 04/25/24 [facility] [address] [place] [address]- Attending Physician: Jose Kirk Admitting Physician: Jose [...] Refills, Maintenance, 01/30/24 7:03:00 EDT, [facility], 177.6, cm, 01/07/24 15:36:00 EST, Height Start [...] (obstructive sleep apnea) Confirmed Active *[facility] [phone] SENIOR PAYROLL ADMINISTRATOR JAMARI BOWER Confirmed Active Severe obesity (BMI 35.0-39.9) with comorbidity Confirmed Active Right shoulder pain Confirmed Active Social History Social History Type Response Smoking Status Never smoker entered on: 03/10/14 Sex Patient Care team information Care Team Personnel Name: Naseem Page Position: [facility] PCO Associate Professional Member Role: PCP Address: Address: [address] [place] [address]- Care Team Related Persons Name: BRITTON ORTA Address: [address] [address] Name: KOMAL LANDRY Name: MORTEZA LANDRY Address: home [address] [place] [address]
--- OUTSIDE RECORDS SUMMARY | 2024-06-30 17:38 | XMS_ITS | Continuity of Care Document ---
Author Organization [facility] Address [address] [place] [address]- Care Team Providers Care Bilingual Student Tutor Name Role Phone Naseem Page Primary Care Physician [facility] Date(s): 12/23/23 - 01/22/24 [facility] [place] [address]- Allergies, Adverse Reactions, Alerts Substance Reaction Severity [...] Refills, Maintenance, 08/10/23 20:51:00 EDT, [facility], 177.6, cm, 01/01/23 9:26:00 EST, Height Start [...] Active ESSIE (obstructive sleep apnea) Confirmed Active *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
--- OUTSIDE RECORDS SUMMARY | 2024-06-30 17:38 | XMS_ITS | Continuity of Care Document ---
Author Organization [facility] Address [address] [facility], 3r d Floor, [address] [place] [address]- Care Team Providers Care Alpine Guide Name Role Phone Elyse Salas NP Primary Care Physician Encounter [facility] Date(s): 01/20/20 - 01/27/20 [facility] [address] [place], 3rd Floor, [address] [place] [address]- [facility] Attending Physician: Geovanny Randhawa Allergies, Adverse Reactions, [...] Active ESSIE (obstructive sleep apnea)(Confirmed) Active *[facility] [phone] CARE MANAG CURRY BOWER(Confirmed) Active Right shoulder pain(Confirmed) Active Social History Social History Type Response Smoking Status Never smoker entered on: 03/10/14 Sex
--- OUTSIDE RECORDS SUMMARY | 2024-06-30 17:38 | XMS_ITS | Continuity of Care Document ---
Author Organization [facility] Address [address] [place] [address]- Care Team Providers Care Medical Bill Processor Name Role Phone Naseem Page Primary Care Physician [facility] Date(s): 06/20/23 - 07/20/23 [facility] [address] [place] [address]- Allergies, Adverse Reactions, Alerts Substance Reaction Severity [...] tablet, 1 Refills, Maintenance, 12/21/22 14:57:00 EST, [facility] 89488, 177.6, cm, 10/27/22 16:09:00 EST, Height Start [...] 06/20/23 13:29:00 EDT, Route to Pharmacy Electronically, [facility] 18685, 177.6, cm, 01/01/23 9:26:00 EST, Height Start Date: 06/20/23 Status: Ordered Proctozone HC 2.5% topical cream [...] pack/packet, 0 Refills, Maintenance, 11/30/20 14:17:00 EST, [facility]/pharmacy #[id number], Partial fill upon patient request if [...] Active ESSIE (obstructive sleep apnea) Confirmed Active *[facility] [phone] 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
--- OUTSIDE RECORDS SUMMARY | 2024-06-30 17:38 | XMS_ITS | Continuity of Care Document ---
Author Organization [facility] Address [address] [place] [address]- Care Team Providers Care Distribution Dispatcher Name Role Phone Naseem Page Primary Care Physician [facility] Date[facility]s): 10/30/23 - 11/29/23 [facility] [address] [place] [address]- Allergies, Adverse Reactions, Alerts Substance Reaction Severity [...] Refills, Maintenance, 08/10/23 20:51:00 EDT, [facility], 177.6, cm, 01/01/23 9:26:00 EST, Height Start Date: 08/10/23 Status: Ordered fluticasone 50 mcg/inh nasal spray See Instructions, USE 1 SPRAY BOTH NOSTRILS 2 TIMES A DAY,X90 DAYS, # 48 mL, 1 Refills, Maintenance, 01/17/23 19:21:00 EST, [facility]/pharmacy #[id number], 90, USE 1 SPRAY BOTH [...] 06/20/23 13:29:00 EDT, Route to Pharmacy Electronically, [facility] 76685, 177.6, cm, 01/01/23 9:26:00 EST, Height Start [...] Active ESSIE (obstructive sleep apnea) Confirmed Active *[facility] [phone] COAT MAKER JAMARI BOWER Confirmed Active Severe obesity Confirmed Active Right shoulder pain Confirmed Active Social History Social History Type Response Smoking Status Never smoker entered on: 03/10/14 Sex Patient Care team information Care Team Personnel Name: Naseem Page Position: S PCO Associate Professional Member Role: PCP Address: Address: [address] [place] [id number] Care Team Related Persons Name: BRITTON ORTA Address: home [address] [place] [address] Name: MORTEZA LANDRY Address: home [address] [place] [address]
--- OUTSIDE RECORDS SUMMARY | 2024-06-30 17:38 | XMS_ITS | Continuity of Care Document ---
Author Organization [facility] Address [address] [place] [address]- Care Team Providers Care Relief Pilot Name Role Phone Naseem Page Primary Care Physician [phone] Encounter [facility] Date(s): 08/16/21 - 09/15/21 [facility] [address] [address]- Attending Physician: Jose Kirk Admitting Physician: AdmJose camacho Referring Physician: AdmtrJose Allergies, Adverse Reactions, Alerts Substance Reaction Severity Status penicillin face turns green Active sulfa drugs unknown Active Immunizations Given and Recorded Vaccine Date Status Refusal Reason SARS-CoV-2 (COVID-19) mRNA-1273 vaccine 04/08/21 R ecorded SARS-CoV-2 (COVID-19) mRNA-1273 vaccine 03/11/21 R ecorded influenza virus vaccine, inactivated 08/21/20 Remberto rded influenza virus vaccine, inactivated 08/23/19 Remberto rded influenza virus vaccine, inactivated 09/02/18 Remberto rded influenza virus vaccine, inactivated 09/15/17 Remberto rded influenza virus vaccine, inactivated 09/16/15 Give n influenza virus vaccine, inactivated 08/09/09 Remberto rded tetanus/diphtheria/pertussis, acel(Tdap) 05/29/17 Given tetanus-diphtheria toxoids (Td) 05/12/08 Recorded tetanus-diphtheria toxoids (Td) 05/13/07 Given Medications Keppra XR 500 mg oral tablet, extended release See Instructions, 3 tablet By Mouth in the PM, OR as directed. No Substitution. Brand Name Medically Necessary., # 270 tablet, 1 Refills, Maintenance, 04/04/21 12:56:00 EDT, ER Tablet, [facility]/pharmacy #[id number], 3 month supply, 177.6, cm, 04/04/21 12:36:00 E... Start Date: 04/04/21 Status: Ordered lisinopril 5 mg oral tablet 5 mg, 1, tablet, By Mouth, Daily, # 90 tablet, Refills 4, Tot. Refills 4, Maintenance, 01/12/21 13:41:00 EST, Route to Pharmacy Electronically, [facility]/pharmacy #[id number], Partial fill upon patient request [...] pack/packet, 0 Refills, Maintenance, 11/30/20 14:17:00 EST, [facility]/pharmacy #[id number], Partial fill upon patient request [...] sleep apnea)(Confirmed) Active *[facility] [phone] CARE MANAG ER JAMARI BOWER(Confirmed) Active Right shoulder pain(Confirmed) Active Social History Social History Type Response Smoking Status Never smoker entered on: 03/10/14 Sex
--- OUTSIDE RECORDS SUMMARY | 2024-06-30 17:39 | XMS_ITS | Continuity of Care Document ---
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
--- OUTSIDE RECORDS SUMMARY | 2024-06-30 17:39 | XMS_ITS | Continuity of Care Document ---
Author Organization [facility] Address [address] [place] [address]- Care Team Providers Care Lithographic Retoucher Apprentice Name Role Phone Josue JAMESON, Elyse Daniel Primary Care Physician [place] [facility] [place] 07/21/20 - 07/28/[address] [facility] [address] [address] [facility] Attending Physician: Srinath ROJAS, Yves Villalpando Admitting [...] Obesity(Confirmed) Active ESSIE (obstructive sleep apnea)(Confirmed) Active *[facility] [phone] CARE MANAG ER JAMARI BOWER(Confirmed) Active Right shoulder pain(Confirmed) Active Vital Signs Most recent to oldest [Reference Range]: 1 2 Height 176 cm (07/21/20 5:32 PM) 176 cm (07/21/20 10:51 AM) Weight 122.9 kg (07/21/20 5:32 PM) 122.9 kg (07/21/20 10:51 AM) Oxygen Saturation [94-100 %] 92 % *L* (07/21/20 10:51 AM) Pulse Rate [55-90 bpm] 76 bpm (07/21/20 10:51 AM) Body Mass Index [18.5-24.99] 39.68 *>HHI* (07/21/20 10:51 AM) Blood Pressure [90-138/55-84 mm Hg] 139/ 95mm Hg *H* (07/21/20 10:51 AM) Temperature [96.8-100.4 DegF] 97.7 DegF (07/21/20 10:51 AM) Blood pressure sites Arm, left (07/21/20 10:51 AM) Temperature Route Temporal (07/21/20 10:51 AM) Social History Social History Type Response Smoking Status Never smoker entered on: 03/10/14 Sex
--- OUTSIDE RECORDS SUMMARY | 2024-06-30 17:39 | XMS_ITS | Continuity of Care Document ---
Author Organization [facility] Address [address] [place] [address]- Care Team Providers Care Door To Door Sales Representative Name Role Phone Naseem Page Primary Care Physician Encounter [facility] Date(s): 02/09/21 - 03/11/21 [facility] [address] [place] [address]- Attending Physician: Jose Kirk Admitting Physician: Jose [...] 01/12/21 13:41:00 EST, Route to Pharmacy Electronically, [facility]/pharmacy #[id number], Partial fill upon patient request if the [...] adult(Confirmed) Active ESSIE (obstructive sleep apnea)(Confirmed) Active *[facility] [phone] CARE MANAG ER JAMARI BOWER(Confirmed) Active Right shoulder pain(Confirmed) Active Social History Social History Type Response Smoking Status Never smoker entered on: 03/10/14 Sex
--- OUTSIDE RECORDS SUMMARY | 2024-06-30 17:39 | XMS_ITS | Continuity of Care Document ---
Author Organization [facility] Address [address] [place] [address]- Care Team Providers Care Lawn Mower Sharpener Name Role Phone Naseem Page Primary Care Physician [facility]counter [facility] Date(s): 01/29/24 - 02/28/24 [facility] [address] [place] [address]- Allergies, Adverse Reactions, Alerts Substance Reaction Severity [...] Refills, Maintenance, 01/30/24 7:03:00 EDT, [facility], 177.6, cm, 01/07/24 15:36:00 EST, Height Start [...] Active ESSIE (obstructive sleep apnea) Confirmed Active *[facility] [phone] TURF MANAGER JAMARI BOWER Confirmed Active Severe obesity Confirmed Active Right shoulder pain Confirmed Active Social History Social History Type Response Smoking Status Never smoker entered on: 03/10/14 Sex Patient Care team information Care Team Personnel Name: Naseem Page Position: S PCO Associate Professional Member Role: PCP Address: Address: [address] [place] [id number] Care Team Related Persons Name: BRITTON ORTA Address: [address] [address] Name: MORTEZA LANDRY Address: home [address] [place] [address]
--- OUTSIDE RECORDS SUMMARY | 2024-06-30 17:39 | XMS_ITS | Continuity of Care Document ---
Author Organization [facility] Adult Address Unknown Care Team Providers Care Preformer Impregnated Fabrics Name Role Phone Naseem Page [id number] Encounter Diagnosis Follow up(Discharge Diagnosis) - 07/14/21 Hypertension(Discharge Diagnosis) - 07/14/21 ESSIE (obstructive sleep apnea)(Discharge Diagnosis) - 07/14/21 Attending Physician: Naseem Page Allergies, Adverse Reactions, [...] Refills, Maintenance, 04/04/21 12:56:00 EDT, ER Tablet, [id number], 3 month supply, 177.6, cm, 04/04/21 12:36:00 E... Start Date: 04/04/21 Status: Ordered lisinopril 5 mg oral tablet 5 mg, 1, tablet, By Mouth, Daily, # 90 tablet, Refills 4, Tot. Refills 4, Maintenance, 01/12/21 13:41:00 EST, Route to Pharmacy Electronically, [facility]/pharmacy #[id number], Partial fill upon patient request if the prescription is for a schedule II opioid drug.... Start Date: 01/12/21 Status: Ordered Proctozone HC 2.5% topical cream 1 applicator, Topically, 3 times a day, apply in a thin film to the affected skin and rub in gentlyand completely, # 30 Gm, 0 Refills, Maintenance, 09/01/20 11:10:00 EDT, [facility]/pharmacy #[id number], 1 applicator Topically 3 times a day,x14 days,Instr:apply i... Start Date: 09/01/20 Stop Date: 09/15/20 Status: Ordered Readi-Cat 2 oral suspension See Instructions, 2 bottles as per radiology 1 the evening before CAT scan with the morning of CAT scan, # 2 pack/packet, 0 Refills, Maintenance, 11/30/20 14:17:00 EST, [facility]/pharmacy #[id number], Partial fill upon patient request [...] adult(Confirmed) Active ESSIE (obstructive sleep apnea)(Confirmed) Active *[facility] [phone] CARE MANAG CURRY BOWER(Confirmed) Active Right shoulder pain(Confirmed) Active Diagnosis Diagnosis Type Effective Dates Health Status Clinical Service Informant Follow up Discharge Diagnosis 07/14/21 Hypertension Discharge Diagnosis 07/14/21 ESSIE (obstructive sleep apnea) Discharge Diagnosis 07/14/21 Vital Signs Most recent to oldest [Reference Range]: 1 Height 177.6 cm (07/14/21 3:23 PM) Weight 114.5 kg (07/14/21 3:23 PM) Oxygen Saturation [94-100 %] 97 % (07/14/21 3:23 PM) Pulse Rate [55-90 bpm] 81 bpm (07/14/21 3:23 PM) Body Mass Index [18.5-24.99] 36.3 *>HHI* (07/14/21 3:23 PM) Blood Pressure [90-138/55-84 mm Hg] 130/ 80mm Hg (07/14/21 3:23 PM) Respiratory Rate [16-30 br/min] 16 br/mi n (07/14/21 3:23 PM) Mode of Delivery (Oxygen) Room air (07/14/21 3:23 PM) Blood pressure sites Arm, right (07/14/21 3:23 PM) Weight Obtained Via Standing scale (07/14/21 3:23 PM) Social History Social History Type Response Smoking Status Never smoker entered on: 03/10/14 Sex
--- OUTSIDE RECORDS SUMMARY | 2024-06-30 17:39 | XMS_ITS | Continuity of Care Document ---
Author Organization [facility] Address [address] [place] [address]- Care Team Providers Care Emergency Room Physician Name Role Phone Naseem Page Primary Care Physician Encounter [facility] Date(s): 03/26/24 - 04/02/24 [facility] [address] [place] [address]- Encounter Diagnosis Hypertension(Discharge Diagnosis) - 03/26/24 Attending Physician: Naseem Page Referring Physician: Mau Hernandez MD Allergies, Adverse Reactions, Alerts Substance Reaction [...] Refills, Maintenance, 01/30/24 7:03:00 EDT, [facility], 177.6, cm, 01/07/24 15:36:00 EST, Height Start [...] (obstructive sleep apnea) Confirmed Active *[facility] [phone] SPECIAL SYSTEMS TECHNICIAN JAMARI SATHISH Confirmed Active Severe obesity (BMI 35.0-39.9) with comorbidity Confirmed Active Right shoulder pain Confirmed Active Diagnosis Diagnosis Type Effective Dates Health Status inical Service Informant Hypertension Discharge Diagnosis 03/26/24 Vital Signs Most recent to oldest [Reference Range]: 1 2 Height 177.6 cm (03/26/24 10:30 AM) 177.6 cm (03/26/24 10:29 AM) Weight 123.4 kg (03/26/24 10:29 AM) Oxygen Saturation [94-100 %] 96 % (03/26/24 10:29 AM) Pulse Rate [55-90 bpm] 79 bpm (03/26/24 10:29 AM) Body Mass Index [18.5-24.99 kg/m2] 39.12 kg/m2 *>HHI* (03/26/24 10:29 AM) Blood Pressure [90-138/55-84 mm Hg] 128/ 82mm Hg (03/26/24 10:30 AM) 144/84mm Hg *H* (03/26/24 10:29 AM) Weight Obtained Via Standing scale (03/26/24 10:29 AM) Social History Social History Type Response Smoking Status Never smoker entered on: 03/10/14 Sex Note * Char Valenzuela MA: PERFORM Event Display: Patient Education/Instruction Authored Date: [id number] Ambulatory Adult Visit Summary [facility] [address] [place], [place] [id number] Name: CARSON LANDRY : 1985?? Visit: 2024 10:23?? Ambulatory Visit Instructions ?? Your Care Team Primary Care Provider Naseem Bashir? This Visit Provider Naseem Page Your Diagnosis Hypertension Vitals Signs Pulse Rate: 79 bpm Height: 177.6 cm Systolic Blood Pressure: 128 mm Hg Weight: 123.4 kg Diastolic Blood Pressure: 82 mm Hg Body Mass Index:??39.12 kg/m2??Critical Oxygen Saturation: 96 % Body surface area: 2.47 Medications The list below reflects the information in our records and provided by you today along with any changes made during this visit. Please continue your medications until treatment is completed or stopped by your provider. If this is different from the information you have or there are other questions,please contact the prescribing provider. What How Much When Instructions Unchanged Durable Medical Equipment (Carpal tunnel splint right) See instructions Wear splint every night x 3 months. Dx CTS ?? Unchanged Escitalopram (escitalopram 10 mg oral tablet) 1 tab(s) Oral Daily Unchanged Fluticasone Nasal (fluticasone 50 mcg/ inh nasal spray) See instructions USE 1 SPRAY BOTH NOSTRILS 2 TIMES A DAY,X90 DAYS ?? Unchanged levETIRAcetam (Keppra 750 mg oral tablet) 1 tab(s) Oral Twice a day Duration: 30 Days Brand name ??medically necessary ?? Medications and Immunizations Administered Medications Given During Visit No medications given during this visit.?? Allergies (NKA means No Known Allergies) penicillin??(face turns green) sulfa drugs??(unknown) Common Emergency Awareness Tips IS IT A STROKE? Act FAST and Check for these signs: FACE Does the face look uneven? ARM Does one arm drift down? SPEECH Does their speech sound strange? TIME Call at any sign of stroke ?? Heart Attack Signs Chest discomfort: Most heart attacks involve discomfort in the center of the chest and lasts more than a few minutes, or goes away and comes back. It can feel like uncomfortable pressure, squeezing, fullness or pain. Discomfort in upper body: Symptoms can include pain or discomfort in one or both arms, back, neck, jaw or stomach. Shortness of breath: With or without discomfort. Other signs: Breaking out in a cold sweat, nausea, or lightheaded. Remember, MINUTES DO MATTER. If you experience any of these heart attack warning signs, call to get immediate medical attention! ?? Smoking can increase your chances of developing chronic health problems and can cause harmful effects to other family members in your house. If you smoke, you are strongly encouraged to quit. Please call [employer] [facility] at [phone] or 4-103-090[employer] (7765) or log in to [email or web address] for referrals to smoking cessation programs. ?? The National Suicide Prevention Hotline is available 11/06 if you or someone you know needs to find a reason to keep living. By calling 0-166-923-Fanhuan.com (3425) you'll be connected to a skilled, trained counselor at a crisis center in your area. [facility] Portal You can view and manage your care through the patient portal or by using a health care ryan of your choosing. [facility] is a website that allows you to securely view your medical information including your hospital discharge summary, office visit summaries, medications and follow-up visits. You can also request appointments, renew medications, and request access to your medical information using a health care ryan of your choosing, or just ask a question. You can enroll at [email or web address] or register during your next office visit. [facility], in keeping with [facility] guidance, no longer requires face masks for staff, patientsor visitors in most situations. Similiar to time spent indoors at other locations, there is the chance that you were exposed to repiratory viruses during your time with us (such as flu or COVID-19). If you develop symptoms concerning for a viral respiratory infection, please seek testing (and treatment if indicated) from your medical provider or home test kit. ?? Disclaimer: The information provided is of a general nature and is intended to be used in conjunction with the recommendations and advice of your health care practitioner. Every effort has been made to ensure that the information provided is accurate and complete at the time it is provided to you however, as your needs change, or, as new information becomes available, different or additional instructions may be required. ?? If you have questions, please consult with your primary care provider or pharmacist, as appropriate. This information is not intended to serve as substitution for assessment and evaluation by a qualified health care provider. If you do not have a primary care provider, you may find a [facility] provider by calling [facility] Link at [phone]. Patient Care team information Care Team Personnel Name: Naseem Page Position: [facility] PCO Associate Professional Member Role: PCP Address: Address: [address] [place] [address]- Care Team Related Persons Name: BRITTON ORTA Address: home [address] [address] Name: KOMAL LANDRY Name: MORTEZA LANDRY Address: home [address] [place] [address]
--- OUTSIDE RECORDS SUMMARY | 2024-06-30 17:39 | XMS_ITS | Continuity of Care Document ---
Author Organization [facility] Address [address] [facility], [address]r d Floor, [address] [place] [address]- Care Team Providers Care Timekeeper Supervisor Name Role Phone Naseem Page Primary Care Physician Encounter [facility] Date(s): 12/23/23 - 04/20/24 [facility] [address], [address] [place] [address]- Attending Physician: Bryan Payan MD Admitting Physician: Bryan Payan MD Allergies, Adverse Reactions, Alerts Substance Reaction [...] Refills, Maintenance, 01/30/24 7:03:00 EDT, [facility], 177.6, cm, 01/07/24 15:36:00 EST, Height Start [...] ESSIE (obstructive sleep apnea) Confirmed Active *[facility] [phone] IT APPLICATION SUPPORT ANALYST JAMARI BOWER Confirmed Active Severe obesity (BMI 35.0-39.9) with comorbidity Confirmed Active Right shoulder pain Confirmed Active Social History Social History Type Response Smoking Status Never smoker entered on: 03/10/14 Sex Patient Care team information Care Team Personnel Name: Naseem Page Position: [facility] PCO Associate Professional Member Role: PCP Address: Address: [address] [place] [address]- Care Team Related Persons Name: BRITTON ORTA Address: [address] [address] Name: KOMAL LANDRY Name: MORTEZA LANDRY Address: home [address] [place] [address]
--- OUTSIDE RECORDS SUMMARY | 2024-06-30 17:39 | XMS_ITS | Continuity of Care Document ---
Author Organization [facility] Address [address] [place] [facility], [address] d Floor, [address] [place] [address]- Care Team Providers Care Citrix Engineer Name Role Phone Naseem Page Primary Care Physician Encounter [facility] Date(s): 05/14/23 - 09/26/23 [facility] [address] [place], 3rd Floor, [address] [place] [address]- Attending Physician: Isacc Nieto MD Admitting Physician: Isacc Nieto MD Allergies, Adverse Reactions, Alerts Substance Reaction [...] tablet, 1 Refills, Maintenance, 08/10/23 20:51:00 EDT, [facility], 177.6, cm, 01/01/23 9:26:00 EST, Height Start Date: 08/10/23 Status: Ordered fluticasone 50 mcg/inh nasal spray See Instructions, USE 1 SPRAY BOTH NOSTRILS 2 TIMES A DAY,X90 DAYS, # 48 mL, 1 Refills, Maintenance, 01/17/23 19:21:00 EST, [facility]/pharmacy #[id number], 90, USE 1 SPRAY BOTH NOSTRILS 2 TIMES A DAY,X90 DAYS, 177.6, cm, 01/01/23 9:26:00 EST, Height Start Date: 01/17/23 Status: Ordered levETIRAcetam 750 mg oral tablet 1 tablet, By Mouth, 2 times a day, # 180 tablet, 3 Refills, Maintenance, 08/08/23 8:26:00 EDT, [facility], 177.6, cm, 01/01/23 9:26:00 EST, Height Start Date: 08/08/23 Status: Ordered lisinopril 5 mg oral tablet 1, tablet, By Mouth, Daily, # 90 tablet, Refills 1, Maintenance, 06/20/23 13:29:00 EDT, Route to Pharmacy Electronically, [facility], 177.6, cm, 01/01/23 9:26:00 EST, Height Start [...] Active ESSIE (obstructive sleep apnea) Confirmed Active *[facility] [phone] DIALYSIS REGISTERED NURSE JAMARI BOWER Confirmed Active Severe obesity (BMI 35.0-39.9) with comorbidity Confirmed Active Right shoulder pain Confirmed Active Social History Social History Type Response Smoking Status Never smoker entered on: 03/10/14 Sex Patient Care team information Care Team Personnel Name: Naseem Page Position: S PCO Associate Professional Member Role: PCP Address: Address: [address] [place] [address]- Care Team Related Persons Name: BRITTON ORTA Address: home [address] [address] Name: MORTEZA LANDRY Address: home [address] [place] [address]
--- OUTSIDE RECORDS SUMMARY | 2024-06-30 17:39 | XMS_ITS | Continuity of Care Document ---
Author Organization [facility] Address [address] [place] [address] Dr [address] [place] [address]- Care Team Providers Care Emblem Cutter Name Role Phone Not on Staff, PCP Primary Care Physician Unavail able Encounter [facility] Date(s): 12/13/20 - 01/12/[address] [place] [address]- Attending Physician: Jose Kirk Admitting Physician: AdmJose [...] 01/12/21 13:41:00 EST, Route to Pharmacy Electronically, [facility]/pharmacy #[id number], Partial fill upon patient request if the [...] sleep apnea)(Confirmed) Active *[facility] [phone] CARE MANAG ER JAMARI BOWER(Confirmed) Active Right shoulder pain(Confirmed) Active Social History Social History Type Response Smoking Status Never smoker entered on: 03/10/14 Sex
--- OUTSIDE RECORDS SUMMARY | 2024-06-30 17:39 | XMS_ITS | Continuity of Care Document ---
Author Organization [facility] Address [address] [place] [address], [address]r d Floor, [address] [place] [address]- Care Team Providers Care Resaw Machine Operator Name Role Phone Naseem Page Primary Care Physician [phone] Encounter [facility] Date(s): 09/11/23 - 10/11/23 [facility] [address] [place], [address]rd Floor, [address] [place] [address]- Allergies, Adverse Reactions, Alerts Substance Reaction Severity [...] Refills, Maintenance, 08/10/23 20:51:00 EDT, [facility], 177.6, cm, 01/01/23 9:26:00 EST, Height Start Date: 08/10/23 Status: Ordered fluticasone 50 mcg/inh nasal spray See Instructions, USE 1 SPRAY BOTH NOSTRILS 2 TIMES A DAY,X90 DAYS, # 48 mL, 1 Refills, Maintenance, 01/17/23 19:21:00 EST, [facility]/pharmacy #[id number], 90, USE 1 SPRAY BOTH NOSTRILS 2 TIMES A DAY,X90 DAYS, 177.6, cm, 01/01/23 9:26:00 EST, Height Start Date: 01/17/23 Status: Ordered Keppra 750 mg oral tablet 1 tablet = 750 mg, By Mouth, 2 times a day, Brand name medically necessary, # 60 tablet, 5 Refills,Maintenance, 10/08/23 7:25:00 EST, Tablet, [facility]/pharmacy #[id number], Partial fill upon patient request ifthe prescription is for a schedule II opioid drug.... Start Date: 10/08/23 Stop Date: 04/05/24 Status: Ordered levETIRAcetam 750 mg oral tablet 1 tablet, By Mouth, 2 times a day, # 180 tablet, 3 Refills, Maintenance, 08/08/23 8:26:00 EDT, [facility] 77178, 177.6, cm, 01/01/23 9:26:00 EST, Height Start Date: 08/08/23 Status: Ordered lisinopril 5 mg oral tablet 1, tablet, By Mouth, Daily, # 90 tablet, Refills 1, Maintenance, 06/20/23 13:29:00 EDT, Route to Pharmacy Electronically, [facility] 90053, 177.6, cm, 01/01/23 9:26:00 EST, Height Start [...] (obstructive sleep apnea) Confirmed Active *[facility] [phone] EMULSIFICATION OPERATOR JAMARI BOWER Confirmed Active Severe obesity (BMI 35.0-39.9) with comorbidity Confirmed Active Right shoulder pain Confirmed Active Social History Social History Type Response Smoking Status Never smoker entered on: 03/10/14 Sex Patient Care team information Care Team Personnel Name: Naseem Page Position: [facility] PCO Associate Professional Member Role: PCP Address: Address: [address] [place] [address]- Care Team Related Persons Name: BRITTON ORTA Address: [address] [address] Name: MORTEZA LANDRY Address: home [address] [place] [address]
--- OUTSIDE RECORDS SUMMARY | 2024-06-30 17:39 | XMS_ITS | Continuity of Care Document ---
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) - 01/07/24 Severe obesity(Discharge Diagnosis) - 01/07/24 ESSIE (obstructive sleep apnea)(Discharge Diagnosis) - 01/07/24 Acute sinusitis(Discharge Diagnosis) - 01/07/24 Screening for cardiovascular condition(Discharge Diagnosis) - 01/07/24 IFG (impaired fasting glucose)(Discharge Diagnosis) - 01/07/24 Attending Physician: Naseem Page Allergies, Adverse Reactions, [...] EDT, Supply Start Date: 02/17/22 Status: Ordered doxycycline hyclate 100 mg oral capsule 1 capsule = 100 mg, By Mouth, 2 times a day, for 10 days, # 20 capsule, 0 Refills, Acute 01/17/24 16:00:00 EST, 01/07/24 16:00:00 EST, C[facility], [id number], Partial fill upon patient request if the prescription is for a schedule II opioid drug.... 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 JAMARI BOWER Confirmed Active Severe obesity Confirmed Active Right shoulder pain Confirmed Active Diagnosis Diagnosis Type Effective Dates Health Status Clinical Service Informant Medicare annual wellness visit, subsequent Discharge Diagnosis 01/07/24 Hypertension Discharge Diagnosis 01/07/24 Intractable localization-related epilepsy Discharge Diagnosis 01/07/24 Severe obesity Discharge Diagnosis 01/07/24 ESSIE (obstructive sleep apnea) Discharge Diagnosis 01/07/24 Acute sinusitis Discharge Diagnosis 01/07/24 Screening for cardiovascular condition Discharge Diagnosis 01/07/24 IFG (impaired fasting glucose) Discharge Diagnosis 01/07/24 Vital Signs Most recent to oldest [Reference Range]: 1 Height 177.6 cm (01/07/24 3:36 PM) Weight 126.7 kg (01/07/24 3:36 PM) Oxygen Saturation [94-100 %] 96 % (01/07/24 3:36 PM) Pulse Rate [55-90 bpm] 74 bpm (01/07/24 3:36 PM) Body Mass Index [18.5-24.99 kg/m2] 40.17 kg/m2 *>HHI* (01/07/24 3:36 PM) Blood Pressure [90-138/55-84 mm Hg] 139/ 84mm Hg *H* (01/07/24 3:36 PM) Weight Obtained Via Standing scale (01/07/24 3:36 PM) Social History Social History Type Response Smoking Status Never smoker entered on: 03/10/14 Sex Patient Care team information Care Team Personnel Name: Naseem Page Position: S PCO Associate Professional Member Role: PCP Address: Address: [address] [place] [address] Care Team Related Persons Name: BRITTON ORTA Address: [address] [address] Name: MORTEZA LANDRY Address: home [address] [place] [address]
--- OUTSIDE RECORDS SUMMARY | 2024-06-30 17:39 | XMS_ITS | Continuity of Care Document ---
Author Organization [facility] Address [address] [facility], [address] Floor, [address] [place] [address]- Care Team Providers Care Machine Shop Inspector Name Role Phone Not on Staff, PCP Primary Care Physician Unavail able Encounter [facility] Date(s): 01/03/21 - 02/02/21 [facility] [address], [address], [address] [place] [address]- Allergies, Adverse Reactions, Alerts Substance Reaction Severity [...] 01/12/21 13:41:00 EST, Route to Pharmacy Electronically, [facility]/pharmacy #[id number], Partial fill upon patient request if the [...] sleep apnea)(Confirmed) Active *[facility] [phone] CARE MANAG CURRY BOWER(Confirmed) Active Right shoulder pain(Confirmed) Active Social History Social History Type Response Smoking Status Never smoker entered on: 03/10/14 Sex
--- OUTSIDE RECORDS SUMMARY | 2024-06-30 17:39 | XMS_ITS | Continuity of Care Document ---
Author Organization [facility] Address [address] [place] [address], [address] d Floor, [address] [place] [address]- Care Team Providers Care Radiology Clerk Name Role Phone Naseem Page Primary Care Physician [phone] [place] [facility] Date(s): 10/04/22 - 11/03/22 [facility] [address] [place], [address]rd Floor, [address] [place] [address]- Allergies, Adverse Reactions, Alerts Substance Reaction Severity [...] Refills, Maintenance, 07/19/22 12:07:00 EDT, [facility], 90, USE 1 SPRAY BOTH NOSTRILS 2 [...] 4, Route to Pharmacy Electronically, [facility], 177.6, cm, 02/17/22 15:34:00 EDT, Height Start [...] pack/packet, 0 Refills, Maintenance, 11/30/20 14:17:00 EST, [facility]/pharmacy #[id number], Partial fill upon patient request [...] Active ESSIE (obstructive sleep apnea) Confirmed Active *[facility] [phone] BRANDS EDITOR JAMARI BOWER Confirmed Active Right shoulder pain Confirmed Active Social History Social History Type Response Smoking Status Never smoker entered on: 03/10/14 Sex Patient Care team information Care Team Personnel Name: Naseem Page Position: [facility] PCO Associate Professional Member Role: PCP Address: Address: [address] [place] [address]- Care Team Related Persons Name: BRITTON ORTA Address: home [address] [address] Name: MORTEZA LANDRY Address: home [address] [place] [address]
--- OUTSIDE RECORDS SUMMARY | 2024-06-30 17:39 | XMS_ITS | Continuity of Care Document ---
Author Organization [facility] Address [address] [place] [address]- Care Team Providers Care Manager Data Warehousing Name Role Phone Mckay JENSEN, Naseem Lr Primary Care Physician [place] [facility] [place]23 [place] 09/13/23 [facility] [address] [place] [address]- Encounter Diagnosis Carpal tunnel syndrome, right(Discharge Diagnosis) - 09/06/23 Attending Physician: Chante Benitez Referring Physician: Geovanny Aguilar MD Allergies, Adverse Reactions, Alerts Substance Reaction [...] tablet, 1 Refills, Maintenance, 08/10/23 20:51:00 EDT, [id number], 177.6, cm, 01/01/23 9:26:00 EST, Height Start [...] tablet, 3 Refills, Maintenance, 08/08/23 8:26:00 EDT, [id number], 177.6, cm, 01/01/23 9:26:00 EST, Height Start Date: 08/08/23 Status: Ordered lisinopril 5 mg oral tablet 1, tablet, By Mouth, Daily, # 90 tablet, Refills 1, Maintenance, 06/20/23 13:29:00 EDT, Route to Pharmacy Electronically, [facility]1680, 177.6, cm, 01/01/23 9:26:00 EST, Height Start [...] sleep apnea) Confirmed Active *[facility] [phone] PERINATAL BREASTFEEDING ASSISTANT JAMARI BOWER Confirmed Active Severe obesity (BMI 35.0-39.9) with comorbidity Confirmed Active Right shoulder pain Confirmed Active Diagnosis Diagnosis Type Effective Dates Health Status Cl inical Service Informant Carpal tunnel syndrome, right Discharge Diagnosis 09/06/23 Vital Signs Most recent to oldest [Reference Range]: 1 Height 177.6 cm (09/06/23 10:37 AM) Weight 126 kg (09/06/23 10:37 AM) Oxygen Saturation [94-100 %] 97 % (09/06/23 10:37 AM) Pulse Rate [55-90 bpm] 101 bpm *H* (09/06/23 10:37 AM) Body Mass Index [18.5-24.99 kg/m2] 39.95 kg/m2 *>HHI* (09/06/23 10:37 AM) Blood Pressure [90-138/55-84 mm Hg] 135/ 76mm Hg (09/06/23 10:37 AM) Blood pressure sites Arm, right (09/06/23 10:37 AM) Social History Social History Type Response Smoking Status Never smoker entered on: 03/10/14 Sex Note * Elyse Tyler [place]: PERFORM, SIGN, VERIFY Event Display: Patient Education/Instruction Authored Date: [id number] [facility] *MEERA Aleman Clinical Summary Name CARSON LANDRY Age 38 Years 1985 PCP Mckay JENSEN, Naseem Lr PCP Visit Date 09/06/2023 10:31:00 Patient Instructions Wear wrist support Alternate Tylenol and ibuprofen as needed Follow up with [facility] Additional Instructions: Scheduled Appointments?? Future Appointments ?No Future Appointments Scheduled Follow-Up Instructions ?? Diagnosis Carpal tunnel syndrome, right upper limb Medications: Please continue your medications until treatment [...] DAY,X90 DAYS. Refills: 1. Next Dose: levETIRAcetam (levETIRAcetam 750 mg oral tablet) 1 tab(s) Oral twice a day. Refills: 3. Next Dose: Lisinopril (lisinopril 5 mg oral tablet) 1 tab(s) Oral Daily. Refills: 1. Next Dose: Allergy Info:?? sulfa drugs; penicillin Medications Given This Visit Future Orders ?No future orders Vital Signs Height 177.6 cm Weight 126 kg BMI 39.95 kg/m2 Blood Pressure 135 mm Hg/76 mm Hg Temperature Pulse Rate 101 bpm Respiratory Rate 02 Sat Mode of Delivery 97 %/ You can now view a summary of your hospital visit from the comfort of your home through a free online portal called [employer]Arc. [employer] is a website that allows you to securely view your medical information including discharge summary, medications and follow-up visits. ??You can alsosend a secure electronic message to your doctor???s office to request appointments, renew medications or just ask a question. You can enroll at [email or web address] or register during your next office [...] primary care provider, you may find a [facility] provider by calling [facility] Link at [phone]. [facility], in keeping with [facility] guidance, no longer requires face masks [...] Care Team Personnel Name: Naseem Page Position: [facility] PCO Associate Professional Member Role: PCP Address: Address: [address] [place] [address]- Care Team Related Persons Name: ORTA BRITTON Address: home [address] [place] [id number] Name: MORTEZA LANDRY Address: home [address] [place] [address]
--- OUTSIDE RECORDS SUMMARY | 2024-06-30 17:39 | XMS_ITS | Continuity of Care Document ---
Author Organization [facility] Address [address] [place] [address]- Care Team Providers Care Mail Processing Associate Name Role Phone Naseem Page Primary Care Physician [phone] [place] [facility] [place] 02/09[place]21 - 02/16/21 [facility] [address] [place] [address]- Attending Physician: Not on Staff, Attending MD Referring Physician: Naseem Page Allergies, Adverse Reactions, Alerts [...] 01/12/21 13:41:00 EST, Route to Pharmacy Electronically, [facility]/pharmacy #[id number], Partial fill upon patient request if the [...] ESSIE (obstructive sleep apnea)(Confirmed) Active *[facility] [phone] CARE MANAG ER JAMARI BOWER(Confirmed) Active Right shoulder pain(Confirmed) Active Vital Signs Most recent to oldest [Reference Range]: 1 Pulse Rate [55-90 bpm] 65 bpm (02/09/21 11:08 AM) Blood Pressure [90-138/55-84 mm Hg] 122/ 70mm Hg (02/09/21 11:08 AM) Blood pressure sites Arm, left (02/09/21 11:08 AM) Social History Social History Type Response Smoking Status Never smoker entered on: 03/10/14 Sex
--- OUTSIDE RECORDS SUMMARY | 2024-06-30 17:39 | XMS_ITS | Continuity of Care Document ---
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
[2024-06-30 18:05] VITALS: BP 150/92; PULSE 84; RESP 16; TEMP 36.8; O2SAT 95
[2024-06-30 18:18] VITALS: BP 150/92; PULSE 84; RESP 16; TEMP 36.8; O2SAT 95
== END 2024-06-30 18:18 | disposition home or self-care (01) ==
PROVIDERS: Emergency Provider Emergency Medicine; PCP Physician Assistant
DX: S92.502A Displaced unspecified fracture of left lesser toe(s), initial encounter for closed fracture (principal); Y29.XXXA Contact with blunt object, undetermined intent, initial encounter; Y93.E1 Activity, personal bathing and showering; Y92.091 Bathroom in other non-institutional residence as the place of occurrence of the external cause; Y99.8 Other external cause status
CPT/HCPCS: 99282

== ENCOUNTER 2024-07-07 11:43 | Outpatient (AMB) | payer OTHER, SELFPAY ==
--- NOTE | 2024-07-07 11:52 | MHC.OFFVIS ---
Vital Signs 07/07/24 11:54 Height 5 ft 9 in Weight 278 lb BMI 41.0 Intake Visit Reasons: FC-FC left foot, pinky toe Intake Note: Jose Antonio a 39 year old male who presents today as a new patient for an ER follow up of left small toe fracture/laceration, DOI 06/29/24. Patient reports while he was taking a shower, the shower door fell off smashing down on his left foot injuring his small toe. He presented to [facility] ER where xrays were taken, sutures applied, crutches and post op shoe was given. He continues taking antibiotics. Currently he has intermittent pain at the base of his toe. States improvement in swelling. He tries to avoid bearing full weight. Allergies Penicillins [PENICILLINS] Allergy (Unknown, Verified 07/07/24 11:56) UNKNOWN Sulfa (Sulfonamide Antibiotics) [SULFA (SULFONAMIDE ANTIBIOTICS)] Allergy (Unknown, Verified 07/07/24 11:56) UNKNOWN HPI HPI FC-FC left foot, pinky toe: Details: 39-year-old male who presents in the office today, as a new patient, for an evaluation of left foot pain. The patient presented to the ED On 06/29/24 status post striking his left foot over the small toe when the shower door fell. He sustained a laceration at the base of the left fifth toe. Five sutures were applied to the left foot. He was given IV cefazolin. X-rays of the left foot were obtained, and he was placed in a post operative shoe, and supplied with crutches. He was prescribed cephalexin 500 mg PO QID.? ? While in the office today, the patient reports he was taking a shower when the shower door came off landing on his left foot, injuring his left little toe. He confirms presenting to the ED where sutures were applied. He is currently taking his antibiotics. He confirms having intermittent pain at the base of his left little toe. He reports improvement in edema and states he is also trying to avoid bearing weight on the left lower extremity. Patient works in a [employer] dealing with the mejia outs. ? [facility] Surgical History (Updated 07/07/24 @ 11:53 by RAGHAVENDRA Bazan) Hx of brain surgery Hx of eye surgery Social History (Updated 07/07/24 @ 11:53 by RAGHAVENDRA Bazan) Patient Tobacco Use Status: Never used Tobacco Current occupational status: employed Current occupation: [employer] Review of Systems Const All systems reviewed & are unremarkable except as noted in HPI and below Physical Exam Vital Signs: BMI result Body Mass Index 41.0 Const General: cooperative and no acute distress Orientation/consciousness: patient oriented x3 Resp Effort & Inspection: normal respiratory effort and able to speak in complete sentences Cardio Peripheral pulses: Peripheral pulses 2+ throughout Skin General skin exam: no rashes or lesions noted Neuro General: patient oriented x3 Extrem Other: Left foot: Laceration over the web space of the fourth and fifth digits. Sutures are intact. No surrounding erythema or drainage. No signs of infection. Able to flex and extend the little toe. Sensation is intact. The little toe is perfusing well with healthy pink tissues. Capillary refill is brisk. ? Office Procedures Fracture Care Fracture Billing Code: Fracture Billing Code Assessment & Plan Assessment & Plan (1) Open fracture of fifth toe of left foot: Code(s): S92.502B - Displaced unspecified fracture of left lesser toe(s), initial encounter for open fracture Category: Medical (2) Open fracture of toe: Code(s): S92.919B - Unspecified fracture of unspecified toe(s), initial encounter for open fracture Category: Medical Qualifiers: Encounter type: subsequent encounter Fracture alignment: nondisplaced Fracture healing: with routine healing Laterality: left Phalanx: proximal Toe: lesser toe Qualified Code(s): S92.515D - Nondisplaced fracture of proximal phalanx of left lesser toe(s), subsequent encounter for fracture with routine healing Plan Mr. Willams is a 39-year-old male who presents in the office today, as a new patient, for an evaluation of left foot pain. The patient presented to the ED On 06/29/24 status post striking his left foot over the small toe when the shower door fell. He sustained a laceration at the base of the left fifth toe. Five sutures were applied to the left foot. He was given IV cefazolin. X-rays of the left foot were obtained, and he was placed in a post operative shoe, and supplied with crutches. He was prescribed cephalexin 500 mg PO QID.? ? While in the office today, the patient reports he was taking a shower when the shower door came off landing on his left foot, injuring his left little toe. He confirms presenting to the ED where sutures were applied. He is currently taking his antibiotics. He confirms having intermittent pain at the base of his left little toe. He reports improvement in edema and states he is also trying to avoid bearing weight on the left lower extremity.? ? Patient works in a [employer] dealing with the mejia outs.? ? The patient should continue to take the antibiotic (cephalexin 500 mg PO QID) until the course is complete. He was educated on signs of infection, which are as follows but not limited to erythema, edema, drainage, or warmth. If he is to experience any of these symptoms, he must contact the office immediately or present to the ED. He can continue to wear the post operative shoe PRN. However, I do not recommend for the patient to wear the shoe past 3-4 weeks, at the most. He wishes to return to work next week where he does a lot of standing. He was given a return to work note stating he can work while in the postoperative shoe. Follow-up will be in one week for a wound check, or sooner if needed. ? ? X-rays of the left foot, obtained on 06/29/24, revealed:? Fracture through the midshaft of the fifth proximal phalanx.? Patient Instructions: Scribed by Luly Castrejon medical claims processor, for Jennifer Adam ENRIKE on 07/07/2024 at 11:50 am, EST.? Coding Level of Care Code New Pt Level 4 (76993) Diagnoses Open fracture of fifth toe of left foot S92.502B Open fracture of toe S92.515D Encounter type: subsequent encounter Fracture alignment: nondisplaced Fracture healing: with routine healing Laterality: left Phalanx: proximal Toe: lesser toe CPT Codes Fracture Care - Fracture Billing Code: Fracture Billing Code ([id number])
[2024-07-07 11:54] VITALS: BMI 41.0
== END 2024-07-07 12:56 | disposition home or self-care (01) ==
PROVIDERS: PCP Physician Assistant; Visit Provider Physician Assistant
DX: S92.502B Displaced unspecified fracture of left lesser toe(s), initial encounter for open fracture (principal); S92.515D Nondisplaced fracture of proximal phalanx of left lesser toe(s), subsequent encounter for fracture with routine healing
CPT/HCPCS: 99204

== ENCOUNTER → 2024-07-07 11:43 | Outpatient (BNVA) | payer OTHER, SELFPAY | PROVIDERS: PCP Physician Assistant; Visit Provider Physician Assistant | DX: S92.515D Nondisplaced fracture of proximal phalanx of left lesser toe(s), subsequent encounter for fracture with routine healing (principal); X58.XXXD Exposure to other specified factors, subsequent encounter; Z79.2 Long term (current) use of antibiotics; Z79.899 Other long term (current) drug therapy | CPT/HCPCS: 99202 ==

== ENCOUNTER 2024-07-15 12:13 | Outpatient (AMB) | payer OTHER, SELFPAY ==
--- NOTE | 2024-07-15 12:26 | MHC.OFFVIS ---
Intake Visit Reasons: OV- left fifth toe fx, DOI 06/29/24 Intake Note: Jose Antonio a 39 year old male who presents today for a wound check of left fifth toe fx, DOI 06/29/24. Patient reports wound is looking better, however he continues to have pain. He would like to discuss his work status today. Allergies Penicillins [PENICILLINS] Allergy (Unknown, Verified 07/15/24 12:27) UNKNOWN Sulfa (Sulfonamide Antibiotics) [SULFA (SULFONAMIDE ANTIBIOTICS)] Allergy (Unknown, Verified 07/15/24 12:27) UNKNOWN HPI HPI OV- left fifth toe fx, DOI 06/29/24: Details: 39-year-old male who presents in the office today for a wound check and follow-up of his left fifth toe fracture on the left foot. I last saw the patient in the office on 07/07/24 when he was to continue his antibiotics. He was informed he could continue to wear the post-op shoe PRN but not to extend the use past 3-4 weeks from the injury. He was also given a return to work note stating he can work while in the post-op shoe. ? ? While in the office today, the patient reports his wound is looking better. He confirms continued pain. He is also interested in discussing his work status. ? [facility] Surgical History Hx of brain surgery Hx of eye surgery Social History Patient Tobacco Use Status: Never used Tobacco Current occupational status: employed Current occupation: [employer] res[employer] Review of Systems Const All systems reviewed & are unremarkable except as noted in HPI and below Physical Exam Const General: cooperative and no acute distress Orientation/consciousness: patient oriented x3 Resp Effort & Inspection: normal respiratory effort and able to speak in complete sentences Cardio Peripheral pulses: Peripheral pulses 2+ throughout Skin General skin exam: no rashes or lesions noted Neuro General: patient oriented x3 Extrem Other: Left foot: Laceration over the web space of the fourth and fifth digits. Healing well. No surrounding erythema or drainage. No signs of infection. Able to flex and extend the little toe. Sensation is intact. The little toe is perfusing well with healthy pink tissue. Capillary refill is brisk. ? Assessment & Plan Assessment & Plan (1) Open fracture of fifth toe of left foot: Code(s): S92.502B - Displaced unspecified fracture of left lesser toe(s), initial encounter for open fracture Category: Medical (2) Open fracture of toe: Code(s): S92.919B - Unspecified fracture of unspecified toe(s), initial encounter for open fracture Category: Medical Qualifiers: Encounter type: subsequent encounter Fracture alignment: nondisplaced Fracture healing: with routine healing Laterality: left Phalanx: proximal Toe: lesser toe Qualified Code(s): S92.515D - Nondisplaced fracture of proximal phalanx of left lesser toe(s), subsequent encounter for fracture with routine healing Plan Mr. Willams is a 39-year-old male who presents in the office today for a wound check and follow-up of his left fifth toe fracture on the left foot. I last saw the patient in the office on 07/07/24 when he was to continue his antibiotics. He was informed he could continue to wear the post-op shoe PRN but not to extend the use past 3-4 weeks from the injury. He was also given a return to work note stating he can work while in the post-op shoe.? While in the office today, the patient reports his wound is looking better. He confirms continued pain. He is also interested in discussing his work status.?? ? The laceration is healing well with no signs of infection at this time. He was educated on signs of infection, which are as follows but not limited to erythema, edema, drainage, or warmth. If he is to experience any of these symptoms, he must contact the office immediately or present to the ED. ? He is still in the post-op shoe and reports pain with prolonged ambulation and standing. 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 He will remain out of work for an additional two weeks and will then return to work full-time, regular duty. Follow-up will be PRN, or sooner if needed. ? Patient Instructions: Scribed by Luly Castrejon medical accounts receivable specialist, for Jennifer Adam PA-C on 07/15/2024 at 12:18 pm, EST.? Coding Level of Care Code Global (67716) Diagnoses Open fracture of fifth toe of left foot S92.502B Open fracture of toe S92.515D Encounter type: subsequent encounter Fracture alignment: nondisplaced Fracture healing: with routine healing Laterality: left Phalanx: proximal Toe: lesser toe
== END 2024-07-15 13:03 | disposition home or self-care (01) ==
PROVIDERS: PCP Physician Assistant; Visit Provider Physician Assistant
DX: S92.502B Displaced unspecified fracture of left lesser toe(s), initial encounter for open fracture (principal); S92.515D Nondisplaced fracture of proximal phalanx of left lesser toe(s), subsequent encounter for fracture with routine healing
CPT/HCPCS: 99213

== ENCOUNTER → 2024-07-15 12:13 | Outpatient (BNVA) | payer OTHER, SELFPAY | PROVIDERS: PCP Physician Assistant; Visit Provider Physician Assistant | DX: S92.515D Nondisplaced fracture of proximal phalanx of left lesser toe(s), subsequent encounter for fracture with routine healing (principal) | CPT/HCPCS: 99212 ==